=== PATIENT | female | born 1940 | race Caucasian/White ===

== ENCOUNTER → 2016-10-17 | Day surgery (SDC) | payer OTHER ==
[~2016-10-17] MED LIST: ARTIFICIAL TEAR15 M2 OP; ASPIR 8181 MG PO; AZILECT PO; CLEAR EYES OPH; CLONAZEPAM0.5 MG PO; CYMBALTA60 M1 PO; DULOXETINE HYDR60 MG PO; ECOTRIN81 MG PO; ENSURE 237 ML237 ML PO; LEVOTHYROXINE0.05 M1 PO; MIRALAX17 GM PO; RESTASIS1 EACH OPH; STALEVO PO; ZANTAC 150MG150 MG PO
--- NOTE | 2016-10-24 09:11 | Operative Report ---
Operative/Inv Procedure Report Surgery Date: 10/17/16 Name of Procedure: Surgical Extraction teeth 1, 2, 14, 15, 16, 17, 32 Pre-Operative Diagnosis: dental caries Post-Operative Diagnosis: same Estimated Blood Loss: less than 50ml Surgeon/Optical Instrument Assembly Supervisor: KLARISSA QUIJANO DMD, Anesthesia: general endotracheal tube (Nasal-tracheal) Operative/Procedure Note Note: after local anesthesia administered - surigcally extracted teeth 1, 2, 14, 15, 16, 17, and 32 No complications pt tolerated procedure well All surgical sites hemostatic extubated w no complication and transfered to PACU in stable condition Discharge Disposition: PACU
== END ==
LOC: STS 01:33
DX: K02.9 Dental caries, unspecified (principal); G20 Parkinson's disease; E03.9 Hypothyroidism, unspecified; K21.9 Gastro-esophageal reflux disease without esophagitis; Z79.82 Long term (current) use of aspirin
CPT/HCPCS: J0131; J0290; J1200; J2250

== ENCOUNTER 2017-10-02 15:35 | Inpatient (IN) | payer OTHER ==
[~2017-10-02] VITALS: Ht 157.5 cm; Wt 47.2 kg
[~2017-10-02 15:35] MED LIST changes: -AZILECT PO; +AZILECT1 M1 PO; +CLONAZEPAM0.5 M2 PO; -CLONAZEPAM0.5 MG PO; -LEVOTHYROXINE0.05 M1 PO; +LEVOXYL50 MCG PO; +MIRALAX17 G1 PO; -MIRALAX17 GM PO; -ZANTAC 150MG150 MG PO; +ZANTAC150 M1 PO
[2017-10-02] MEDS ORDERED: STALEVO 75 TAB1 EACH PO (15:42)
[2017-10-02] MEDS ORDERED: CLONAZEPAM0.5 M2 PO (15:44)
[2017-10-02] MEDS ORDERED: ARTIFICIAL TEAR15 M8 OPH (15:45)
[2017-10-02] MEDS ORDERED: RESTASIS1 EACH OPH (15:46)
[2017-10-02] MEDS ORDERED: NAPROXEN SODIU220 M1 PO (15:46)
--- NOTE | 2017-10-02 15:57 | ED GENERAL ADULT ---
History of Present Illness General Chief Complaint: General Adult Stated Complaint: BIBA ?DEHYDRATION Source: patient, old records, EMS Exam Limitations: no limitations Vital Signs & Intake/Output Vital Signs & Intake/Output Vital Signs Date Time Temp Pulse Resp B/P B/P Pulse O2 O2 Flow FiO2 Mean Ox Delivery Rate 10/03 1257 97.9 90 18 134/62 96 Room Air Room Air 10/03 0947 97.9 82 18 132/60 99 Room Air 10/03 0739 98.4 82 18 119/58 99 Room Air 10/03 0608 Room Air 10/03 0607 97.7 92 16 127/89 98 Room Air 10/03 0141 Room Air 10/02 2211 98.0 71 18 115/79 99 Room Air 10/02 2041 Room Air 10/02 1830 98.3 76 18 126/88 98 Room Air 10/02 1545 98.0 69 18 130/71 95 Room Air ED Intake and Output 10/03 0000 10/02 1200 Intake Total 0 Output Total 400 Balance -400 Intake, Oral 0 Output, Urine 400 Patient 126 lb Weight Weight Reported by Patient Measurement Method Allergies Coded Allergies: amantadine (STOMACH UPSET 10/02/17) indomethacin (UPSET STOMACH 10/02/17) Uncoded Allergies: dust (UNKNOWN 10/07/14) Reconcile Medications Carbidopa/Levodopa/Entacapone (Stalevo 75 Tablet) 18.75 MG-75 MG-200 MG TABLET 1 TAB PO TID PARKINSONS (Reported) Clonazepam 0.5 MG TABLET 1 TAB PO DAILY ANXIETY (Reported) Clonazepam 0.5 MG TABLET 0.5 TAB PO BID ANXIETY (Reported) Cyclosporine (Restasis) 0.05 % DROPERETTE 1 GTT OPH BID EYE (Reported) Duloxetine HCl (Cymbalta) 60 MG CAPSULE.DR 1 CAP PO DAILY DEPRESSION ( Reported) Levothyroxine Sodium (Levoxyl) 50 MCG TABLET 1 TAB PO DAILY AC THYROID ( Reported) Naproxen Sodium 220 MG CAPSULE 1 TAB PO Q8P PRN PAIN (Reported) Polyethylene Glycol 3350 (Miralax) 17 GRAM POWD.PACK 1 PAC PO DAILY CONSTIPATION (Reported) dissolve in water Polyvinyl Alcohol (Artificial Tears) 1.4 % DROPS 1-2 DROP OPH TIDPRN PRN EYE (Reported) Ranitidine HCl (Zantac) 150 MG TABLET 1 TAB PO QPM GI (Reported) Rasagiline Mesylate (Azilect) 1 MG TABLET 1 TAB PO DAILY PARKINSONS (Reported ) Triage Note: AINSLEY FROM MD OFFICE FOR CONCERN OF DEHYDRATION. PT WITH PARKINSONS DX AND LIVES WITH . REQUIRES [address] HECTOR CONCERNED ABOUT HUSBANDS ABILITY TO CARE FOR PT AT HOME. PER EMS WILL LEAVE PT HOME WHEN VISITING NURSE/PT/OT STAFF COME TO VISIT AND SOMETIMES WILL NOT BE BACK WHEN IT IS TIME FOR VISITING CAREGIVER TO LEAVE. UPON ARRIVAL PT AWAKE, ALERT, ORIENTED. TALKS QUIETLY WITH DIFFICULTY, VERY HARD TO UNDERSTAND PT. DENIES PAIN OR SOB. SKIN COOL AND PALE Triage Nurses Notes Reviewed? yes HPI: Patient sent in for evaluation by elderly protective services. Patient's took her out of her rehabilitation facility stating that he would take care of her. He then canceled visiting nursing. Nursing became concerned because the patient was sitting in the same chair all day and she was not being cared for. Patient was brought to her primary care physician and elderly protective services was contacted. Patient was sent to the emergency department for evaluation and further treatment. Upon questioning patient states that she does not feel safe at home and that her does not care for her. Patient states that she sits all day in a chair and he won't even clean her. (Mindy WASHBURN,Aleks Sol) Past History Travel History Traveled to [place] past 21 day No Medical History Any Pertinent Medical History? see below for history Neurological: Parkinson's disease EENT: cataracts Cardiovascular: CAD Respiratory: NONE Gastrointestinal: constipation Hepatic: NONE Renal: NONE Musculoskeletal: falls Psychiatric: anxiety, depression Endocrine: hypothyroidism Blood Disorders: NONE Cancer(s): NONE ASSOCIATE STORE DIRECTOR/Reproductive: NONE History of MRSA: No History of VRE: No History of CDIFF: No Surgical History Surgical History: non-contributory Psychosocial History Who do you live with Spouse Services at Home None What is your primary language Japanese Tobacco Use: Never used ETOH Use: denies use Illicit Drug Use: denies illicit drug use Family History Hx Contributory? No (Mindy WASHBURN,Aleks Sol) Review of Systems Review of Systems Constitutional: Reports: no symptoms, weakness. EENTM: Reports: no symptoms. Respiratory: Reports: no symptoms. Cardiovascular: Reports: no symptoms. GI: Reports: no symptoms. Genitourinary: Reports: no symptoms. Musculoskeletal: Reports: no symptoms. Skin: Reports: no symptoms. Neurological/Psychological: Reports: no symptoms. Hematologic/Endocrine: Reports: no symptoms. Immunologic/Allergic: Reports: no symptoms. All Other Systems: Reviewed and Negative (Mindy WASHBURN,Aleks Sol) Physical Exam Physical Exam General Appearance: well developed/nourished, alert, awake, anxious, moderate distress Head: atraumatic, normal appearance Eyes: Bilateral: PERRL, EOMI. Ears, Nose, Throat: normal pharynx, DRY MUCOSA Neck: normal inspection, supple, full range of motion Respiratory: normal breath sounds, chest non-tender, no respiratory distress, lungs clear Cardiovascular: regular rate/rhythm, normal peripheral pulses Gastrointestinal: normal bowel sounds, soft, non-tender, no organomegaly Back: normal inspection, normal range of motion Extremities: normal inspection, normal capillary refill, normal range of motion, no edema Neurologic/Psych: no motor/sensory deficits, awake, alert, oriented x 3 Skin: intact, normal color, warm/dry Lymphatic: no anterior cervical charis Core Measures ACS in differential dx? No CVA/TIA Diagnosis: No Sepsis Present: No Sepsis Focused Exam Completed? No (Mindy WASHBURN,Aleks Sol) Progress Differential Diagnoses I considered the following diagnoses in my evaluation of the patient: [ Dehydration, electrolyte abnormality] Plan of Care: Orders Procedure Date/time Status CBC WITHOUT DIFFERENTIAL 10/04 06 Active BASIC ELECTROLYTES PLUS BUN&CR 10/04 0600 Active Regular Diet 10/03 B Active Weight 10/03 1336 Active Vital Signs 10/03 1336 Complete Teach/Educate 10/03 1336 Active Pain Treatment and Response 10/03 1336 Active Nutritional Intake, Monitor 10/03 1336 Active Isolation 10/03 1336 Active Intake & Output 10/03 1336 Complete Patient Care Conference 10/03 1336 Active Activity/Ambulation 10/03 1336 Complete Pathway - chart 10/03 1154 Active House Staff 10/03 1154 Active Patient Data 10/03 1149 Active OXYGEN SETUP (GEN) 10/03 1126 Active Saline Lock 10/03 1126 Active Admit to inpatient 10/03 1126 Active Vital Signs 10/03 1126 Active Activity/Ambulation 10/03 1126 Active Code Status 10/03 1126 Active CASE MANAGEMENT CONSULT 10/03 0929 Active XRY-SHOULDER COMPLETE-LEFT 10/03 UNK Active PT Evaluate & Treat 10/03 UNK Active Therapeutic Activities 10/03 UNK Complete PT EVAL LOW COMPLEX 20 MIN 10/03 UNK Complete VTE Mechanical Prophylaxis 10/03 UNK Active MISTAKE 10/03 UNK Active Precautions 10/03 UNK Active Intake & Output 10/03 UNK Active PT Evaluate & Treat 10/02 1816 Active URINALYSIS 10/02 1551 Complete TROPONIN LEVEL 10/02 1551 Complete COMPREHENSIVE METABOLIC PANEL 10/02 1551 Complete CBC WITHOUT DIFFERENTIAL 10/02 1551 Complete EKG 10/02 1551 Active Current Medications Sig/Tarun Start time Last Medication Dose Stop Time Status Admin Famotidine 20 MG DAILY 10/03 1354 AC (Pepcid) Polyethylene Glycol 17 GM DAILY 10/03 1353 AC (Miralax) Clonazepam 0.5 MG BID 10/03 1000 AC 10/03 (KlonoPIN) 10/10 0959 0943 Duloxetine HCl 60 MG DAILY 10/03 1000 AC 10/03 (Cymbalta) 0943 Levothyroxine Sodium 0.05 MG DAILY AC 10/03 0700 AC 10/03 (Synthroid) 0619 Naproxen 500 MG BID 10/02 2200 AC 10/03 (Naprosyn) 0943 Laboratory Tests 10/02/17 1626: Anion Gap 5, Estimated GFR > 60, BUN/Creatinine Ratio 27.1 H, Glucose 90, Calcium 9.3, Total Bilirubin 0.7, AST 21, ALT 18, Alkaline Phosphatase 68, Troponin I < 0.01, Total Protein 6.8, Albumin 3.8, Globulin 3.0, Albumin/ Globulin Ratio 1.3, CBC w Diff NO MAN DIFF REQ, RBC 4.57, MCV 91.9, MCH 29.7, MCHC 32.3 L, RDW 14.4, MPV 8.9, Gran % 61.7, Lymphocytes % 29.7, Monocytes % 7.1, Eosinophils % 0.9, Basophils % 0.6, Absolute Granulocytes 3.4, Absolute Lymphocytes 1.6, Absolute Monocytes 0.4, Absolute Eosinophils 0.1, Absolute Basophils 0, Urine Color ORANG H, Urine Clarity HAZY H, Urine pH 5.0, Ur Specific [place] >= 1.030, Urine Protein TRACE H, Urine Ketones 15 H, Urine Nitrite POS H, Urine Bilirubin NEG, Urine Urobilinogen 0.2, Ur Leukocyte Esterase NEG, Ur Microscopic SEDIMENT EXAMINED, Urine RBC FEW H, Urine WBC RARE , Ur Epithelial Cells RARE, Urine Bacteria MOD H, Urine Mucus MOD H, Urine Hemoglobin NEG, Urine Glucose 100 H Initial ED EKG: NSR, nonspecific ST T wave chg Prior EKG: unchanged Hand-Off Endorsed To: Valentin Wayne MD Endorsed Time: 1900 Pending: consult (PT, CASE MANAGEMENT) (Mindy WASHBURN,Aleks Sol) Comments: 10/03/2017 7:24:03 AM patient signed out to Dr. COLE at shift guide changer. (Valentin Wayne MD) Departure Departure Disposition: STILL A PATIENT Condition: Stable Clinical Impression Primary Impression: Multifactorial gait disorder Referrals: Geronimo WASHBURN,Isai Gann (PCP/Family) Departure Forms: Customer Survey General Discharge Information (Mindy WASHBURN,Aleks Sol) Departure Time of Disposition: 1123 Admission Note Spoke With: Sharmila Mera MD Documentation of Exam: Documentation of any treatments & extenuating circumstances including Concerns Regarding Discharge (functional status, medication knowledge or non-compliance, living conditions, etc.) that warrant an admission rather than observation: Patient is unable to safely ambulate even with an assist of 2 and perform ADLs with inadequate resources at home to ensure her safety with elderly protective services evaluating the spouse and home situation. She required extensive rehabilitation physical therapy medication adjustment and continuing care discharge planning. (Francois WASHBURN,Carter) Critical Care Note Critical Care Note Critical Care Time: non-applicable (Aleks Guillen MD)
[2017-10-02 16:36] LABS: ABSOLUTE BASOPHIL COUNT 0 /CUMM (0.0-0.2); ABSOLUTE EOSINOPHIL COUNT 0.1 /CUMM (0.0-0.7); ABSOLUTE GRANULOCYTE CT 3.4 /CUMM (1.4-6.5); ABSOLUTE LYMPH COUNT 1.6 /CUMM (1.2-3.4); ABSOLUTE MONOCYTE COUNT 0.4 /CUMM (0.10-0.60); BASOPHIL % 0.6 % (0.0-2.0); EOSINOPHIL % 0.9 % (0-5); GRANULOCYTE % 61.7 % (42.2-75.2); MEAN CORPUSCULAR HGB 29.7 PG (27.0-31.0); MEAN CORPUSCULAR HGB CONC 32.3 G/DL (33.0-37.0); MEAN CORPUSCULAR VOLUME 91.9 FL (81.0-99.0); MEAN PLATELET VOLUME 8.9 FL (7.4-10.4); PLATELET COUNT 317 /CUMM (130-400); RBC DISTRIBUTION WIDTH 14.4 % (11.5-14.5); RED BLOOD CELL CT 4.57 /CUMM (4.20-5.40); WHITE BLOOD CELL COUNT 5.5 /CUMM (4.8-10.8)
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
[2017-10-03] MEDS ORDERED: CARBIDOPA-LEVO1 EAC1 PO (14:15)
--- NOTE | 2017-10-03 14:59 | RADIOLOGY REPORT ---
EXAMINATION: XR SHOULDER, LEFT CLINICAL INFORMATION: Left shoulder pain status post fall COMPARISON: 05/12/2015 TECHNIQUE: Four views of the left shoulder. FINDINGS: No fracture or dislocation. The humeral head articulates appropriately with the glenoid. Mild degenerative changes at the left acromioclavicular joint. The visualized lung is clear. IMPRESSION: No acute fracture or malalignment. Mild degenerative changes of the acromioclavicular joint.
[2017-10-03 16:00] VITALS: BP 106/58
[2017-10-03 21:11] VITALS: BP 110/64
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
[2017-10-04 07:10] VITALS: BP 118/62
[2017-10-04 08:35] LABS: ABSOLUTE BASOPHIL COUNT 0 /CUMM (0.0-0.2); ABSOLUTE EOSINOPHIL COUNT 0.1 /CUMM (0.0-0.7); ABSOLUTE GRANULOCYTE CT 2.2 /CUMM (1.4-6.5); ABSOLUTE LYMPH COUNT 1.4 /CUMM (1.2-3.4); ABSOLUTE MONOCYTE COUNT 0.4 /CUMM (0.10-0.60); BASOPHIL % 0.7 % (0.0-2.0); EOSINOPHIL % 3.2 % (0-5); GRANULOCYTE % 52.9 % (42.2-75.2); MEAN CORPUSCULAR HGB 30.7 PG (27.0-31.0); MEAN CORPUSCULAR HGB CONC 33.5 G/DL (33.0-37.0); MEAN CORPUSCULAR VOLUME 91.9 FL (81.0-99.0); MEAN PLATELET VOLUME 9.9 FL (7.4-10.4); PLATELET COUNT 246 /CUMM (130-400); RBC DISTRIBUTION WIDTH 14.7 % (11.5-14.5); RED BLOOD CELL CT 3.73 /CUMM (4.20-5.40); WHITE BLOOD CELL COUNT 4.1 /CUMM (4.8-10.8)
[2017-10-04 08:57] LABS: HEMATOCRIT 34.3 % (37-47)
--- NOTE | 2017-10-04 10:34 | PN- Att Addend ---
See Addendum Attending Addendum Attending Brief Note Patient was seen and evalauted. Chart reviewed Vital Signs Date Time Temp Pulse Resp B/P B/P Pulse O2 O2 Flow FiO2 Mean Ox Delivery Rate 10/04 0711 98.4 18 96 10/04 0710 81 118/62 10/03 2111 98.5 90 17 110/64 98 Room Air 10/03 1600 97.6 86 18 106/58 97 Room Air 10/03 1257 97.9 90 18 134/62 96 Room Air Room Air Intake & Output 10/04 1600 10/04 0800 10/04 0000 Intake Total 120 60 Output Total 400 250 Balance -280 -190 Intake, Oral 120 60 Number 0 Bowel Movements Output, Urine 400 250 Patient 47.627 kg Weight Weight Bed scale Measurement Method GEN: HEENT: LUNGS: HEART: ABD: A/P: Ms. Branch is a 77 yo lady with PMHx of PD, Depression, Hypothyroidism, multiple falls, dependent on for ADL's and IADLs admitted due to unsafe home environmenta --no evidence of infection --awaiting PT eval
[2017-10-04 14:00] VITALS: BP 116/60
[2017-10-04 22:54] VITALS: BP 124/64
[2017-10-05 07:06] VITALS: BP 127/63
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
[2017-10-05 14:37] VITALS: BP 140/60
[2017-10-05 21:14] VITALS: BP 122/72
[2017-10-06 06:47] VITALS: BP 122/66
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
[2017-10-06 16:12] VITALS: BP 116/62
[2017-10-06 21:55] VITALS: BP 98/62
[2017-10-07 06:45] VITALS: BP 124/68
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
[2017-10-07 13:52] VITALS: BP 120/60
[2017-10-07 14:17] VITALS: BP 120/60
== END 2017-10-07 14:46 | DRG 57 ==
LOC: ERH 15:35 → ERHI 10-03 11:26 → 2NB 10-03 11:26 → ENRESERV 10-03 12:18 → ENTRNSPT 10-03 12:59 → EDTRNSPTSTS 10-03 13:02 → 2NB 10-03 13:06 → CMPTRNSPT 10-03 13:24 → 2NB 10-06 17:35 → ENPENDDIS 10-07 14:06 → 2NB 10-07 14:46
PROVIDERS: Emergency Medicine; Student in an Organized Health Care Education/Training Program
DX: G20 Parkinson's disease (principal); E86.0 Dehydration; T76.01XA Adult neglect or abandonment, suspected, initial encounter; R26.2 Difficulty in walking, not elsewhere classified; Z60.9 Problem related to social environment, unspecified; F32.9 Major depressive disorder, single episode, unspecified; E03.9 Hypothyroidism, unspecified; Z91.81 History of falling; Z88.8 Allergy status to other drugs, medicaments and biological substances; K59.00 Constipation, unspecified; F41.9 Anxiety disorder, unspecified; I25.10 Atherosclerotic heart disease of native coronary artery without angina pectoris; H26.9 Unspecified cataract; Z66 Do not resuscitate; Z99.3 Dependence on wheelchair; Z75.2 Other waiting period for investigation and treatment; R39.11 Hesitancy of micturition
CPT/HCPCS: 2NBSP; 36415; 36592; 73030-LT; 81001; 82436; 87086; 93005; 93010; 97110-GO; 97116-GO; 97161-GP; 97530-GO; J1644

== ENCOUNTER 2017-10-14 00:26 | Emergency (ER) | payer OTHER ==
[~2017-10-14] VITALS: Ht 157.5 cm; Wt 46.3 kg
[~2017-10-14 00:26] MED LIST changes: +ARTIFICIAL TEAR15 M8 OPH; +CARBIDOPA-LEVO1 EAC1 PO; +NAPROXEN SODIU220 M1 PO; +STALEVO 75 TAB1 EACH PO
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
[2017-10-14 01:13] VITALS: BP 177/71
--- NOTE | 2017-10-14 01:22 | CT SCAN REPORT ---
EXAMINATION: NONCONTRAST HEAD CT NONCONTRAST CERVICAL SPINE CT INDICATION INFORMATION: Fall with head injury COMPARISON: 05/12/2015 TECHNIQUE: Separate noncontrast CT examinations of the head and cervical spine were performed. Coronal and sagittal images were created for each examination at the technologist workstation. DLP: 966 mGy-cm FINDINGS: Head: There is no evidence of acute intracranial hemorrhage or territorial infarction. No abnormal mass effect or midline shift is seen. Pepe to white matter differentiation is well preserved. No extra-axial fluid collections are identified. No hydrocephalus. Proportional prominence of the ventricles and sulcal spaces is consistent with mild volume loss. Patchy periventricular and deep white matter hypoattenuation is consistent with mild small vessel ischemic changes. The osseous structures and soft tissues are normal. Aerosolized secretions noted in the left sphenoid. The mastoid air cells and visualized portions of the paranasal sinuses are otherwise well aerated. Cervical spine: There is anatomic alignment of the vertebral bodies and posterior elements. The atlantoaxial and atlantooccipital articulations are intact. Vertebral body heights are maintained. There is multilevel intervertebral disc space narrowing with endplate osteophyte formation and facet arthropathy. Partial fusion of the C5, C6, and C7 vertebral bodies. No evidence of acute fracture. No prevertebral soft tissue swelling. Visualized portions of the lung apices are unremarkable. The thyroid gland is unremarkable. IMPRESSION: 1. No acute intracranial findings. 2. No acute fracture or malalignment of the cervical spine. Moderate multilevel degenerative changes.
--- NOTE | 2017-10-14 01:24 | RADIOLOGY REPORT ---
EXAMINATION: XR THORACOLUMBAR SPINE CLINICAL INFORMATION: Fall with pain COMPARISON: None TECHNIQUE: 2 views of the thoracolumbar spine were obtained. FINDINGS: No acute fracture or subluxation. Scoliotic curvature. There is multilevel endplate osteophyte formation, greatest laterally. Mild disc space narrowing throughout the lumbar spine. The lung bases are clear. The visualized bowel gas pattern is nonobstructive with prominent stool burden. Right upper quadrant surgical clips. IMPRESSION: No acute fracture or malalignment. Scoliosis. Mild to moderate degenerative changes.
--- NOTE | 2017-10-14 01:25 | RADIOLOGY REPORT ---
EXAMINATION: XR WRIST, RIGHT CLINICAL INFORMATION: Fall with pain COMPARISON: None TECHNIQUE: PA, lateral, and oblique views of the right wrist. FINDINGS: No acute fracture or dislocation. The carpal rows are aligned. There are moderate to severe degenerative changes at the triscaphe joint. Moderate degenerative changes of the first carpometacarpal joint. There is joint space narrowing with sclerosis and osteophyte formation. Cyst formation in the distal ulna. The soft tissues are unremarkable. Additional degenerative changes partially visualized at the interphalangeal joints. IMPRESSION: No acute fracture or malalignment. Degenerative changes.
== END 2017-10-14 02:06 ==
LOC: ERH 00:26
DX: S09.90XA Unspecified injury of head, initial encounter (principal); W19.XXXA Unspecified fall, initial encounter; Y92.129 Unspecified place in nursing home as the place of occurrence of the external cause; Y93.9 Activity, unspecified
CPT/HCPCS: 72080; 73110-RT

== ENCOUNTER 2017-12-27 18:27 | Inpatient (IN) | payer OTHER ==
[~2017-12-27] VITALS: Ht 157.5 cm; Wt 48.1 kg
[~2017-12-27 18:27] MED LIST changes: +ACETAMINOPHEN650 M3 PO; -LEVOXYL50 MCG PO; +LEVOXYL75 MCG PO; +OMEPRAZOLE20 M2 PO; +TIZANIDINE HCL2 M2 PO
[2017-12-27 18:58] LABS: ABSOLUTE BASOPHIL COUNT 0 /CUMM (0.0-0.2); ABSOLUTE EOSINOPHIL COUNT 0 /CUMM (0.0-0.7); ABSOLUTE GRANULOCYTE CT 7.9 /CUMM (1.4-6.5); ABSOLUTE LYMPH COUNT 0.5 /CUMM (1.2-3.4); ABSOLUTE MONOCYTE COUNT 1.5 /CUMM (0.10-0.60); BASOPHIL % 0.1 % (0.0-2.0); EOSINOPHIL % 0 % (0-5); GRANULOCYTE % 79.5 % (42.2-75.2); HEMATOCRIT 27.6 % (37-47); MEAN CORPUSCULAR HGB 30.7 PG (27.0-31.0); MEAN CORPUSCULAR HGB CONC 33.1 G/DL (33.0-37.0); MEAN CORPUSCULAR VOLUME 92.7 FL (81.0-99.0); MEAN PLATELET VOLUME 8.6 FL (7.4-10.4); PLATELET COUNT 277 /CUMM (130-400); RBC DISTRIBUTION WIDTH 15.3 % (11.5-14.5); RED BLOOD CELL CT 2.97 /CUMM (4.20-5.40); WHITE BLOOD CELL COUNT 9.9 /CUMM (4.8-10.8)
--- NOTE | 2017-12-27 20:01 | RADIOLOGY REPORT ---
EXAMINATION: XR CHEST CLINICAL INFORMATION: Cough. COMPARISON: Chest 12/22/2017. TECHNIQUE: 2 views of the chest were obtained. FINDINGS: There is interval right lower lobe patchy consolidation with effusion. Rest of lungs are expanded and clear. Heart size and pulmonary vascularity is normal. IMPRESSION: New right lower lobe infiltrate. Suspect pleural effusion.
[2017-12-27] MEDS ORDERED: [UNRECOGNIZED DRUG - OTHER] PO (20:38)
--- NOTE | 2017-12-27 21:10 | ED GENERAL ADULT ---
History of Present Illness General Chief Complaint: General Adult Stated Complaint: PNA Source: patient Exam Limitations: poor historian Vital Signs & Intake/Output Vital Signs & Intake/Output Vital Signs Date Time Temp Pulse Resp B/P B/P Pulse O2 O2 Flow FiO2 Mean Ox Delivery Rate 12/27 2149 99.0 98 20 106/64 94 Room Air 12/27 2017 99.1 98 20 107/58 93 Room Air 12/28 1855 97.8 100 22 95/52 94 Room Air Allergies Coded Allergies: amantadine (STOMACH UPSET 10/02/17) indomethacin (UPSET STOMACH 10/02/17) Uncoded Allergies: dust (UNKNOWN 10/07/14) Reconcile Medications Acetaminophen (Acetaminophen ER) 650 MG TABLET.ER 1 TAB PO TID pain (Reported ) Amantadine HCl (Amantadine) 100 MG TABLET 1 TAB PO DAILY PARKINSONS (Reported ) Clonazepam 0.5 MG TABLET 1.5 TAB PO DAILY ANXIETY (Reported) Cyclosporine (Restasis) 0.05 % DROPERETTE 1 GTT OPH BID EYE (Reported) Levothyroxine Sodium (Levoxyl) 75 MCG TABLET 1 TAB PO DAILY AC THYROID ( Reported) Omeprazole 20 MG CAPSULE.DR 1 CAP PO DAILY GI (Reported) Polyethylene Glycol 3350 (Miralax) 17 GRAM POWD.PACK 1 PAC PO DAILY CONSTIPATION (Reported) dissolve in water [POWER CEREAL] 100 % PO TID POWER CEREAL (Reported) Ranitidine HCl (Zantac) 150 MG TABLET 1 TAB PO DAILY GI (Reported) Tizanidine HCl 2 MG CAPSULE 0.5 TAB PO TID MUSCLE RELAXER (Reported) Triage Note: PER EMS AND [facility]-10 PT BEING RX FOR PNA SPIKED TEMP TODAY TO 102 AND WAS HYPOTENSIVE WITH LOW SATS PT HAD REC'D 3 DOSES OF CEFUROXIME AT [facility]. Triage Nurses Notes Reviewed? yes Onset: Gradual Duration: day(s): Timing: constant HPI: 77-year-old female with a history of Parkinson's, hypothyroid, anxiety, depression and by ambulance from her [facility] where she was found hypoxic to the 70s and hypotensive with an SPEP to the 90s. Patient received approximately 250 mL of normal saline in route with EMS with improvement in her BP to the low 100s. On arrival to the ED her O2 sats are in the mid 90s on room air without any prior interventions. Patient is currently being treated for pneumonia with IV cefepime since yesterday. She has since received 3 doses. Patient has been noted to be febrile to 102 Fahrenheit and also with a nonproductive cough. Denies chest pain, shortness of breath, abdominal pain, nausea, vomiting, diarrhea. (Jessy Lemus) Past History Travel History Traveled to [place] past 21 day No Medical History Any Pertinent Medical History? see below for history Neurological: Parkinson's disease EENT: cataracts Cardiovascular: CAD Respiratory: NONE Gastrointestinal: constipation Hepatic: NONE Renal: NONE Musculoskeletal: falls Psychiatric: anxiety, depression Endocrine: hypothyroidism Blood Disorders: NONE Cancer(s): NONE ORTHOPEDIC TECHNICIAN/Reproductive: NONE History of MRSA: No History of VRE: No History of CDIFF: No Surgical History Surgical History: BACK SURGERY TONSILECTOMY Psychosocial History Who do you live with Spouse Services at Home Nursing What is your primary language Georgian Tobacco Use: Never used Family History Family History, If Any: FATHER FH: myocardial infarction BROTHER FH: myocardial infarction Hx Contributory? No (Jessy Lemus) Review of Systems Review of Systems Constitutional: Reports: no symptoms. EENTM: Reports: no symptoms. Respiratory: Reports: see HPI. Cardiovascular: Reports: no symptoms. GI: Reports: no symptoms. Genitourinary: Reports: no symptoms. Musculoskeletal: Reports: no symptoms. Skin: Reports: no symptoms. Neurological/Psychological: Reports: no symptoms. Hematologic/Endocrine: Reports: no symptoms. Immunologic/Allergic: Reports: no symptoms. (Jessy Lemus) Physical Exam Physical Exam General Appearance: well developed/nourished, no apparent distress, alert, awake , comfortable Head: atraumatic, normal appearance Eyes: Bilateral: normal appearance. Neck: normal inspection Respiratory: normal breath sounds, lungs clear Cardiovascular: regular rate/rhythm Gastrointestinal: soft, non-tender Back: normal inspection Extremities: normal inspection Neurologic/Psych: awake, alert, normal mood/affect Skin: intact, normal color, warm/dry Core Measures ACS in differential dx? No CVA/TIA Diagnosis: No Sepsis Present: Yes Sepsis Focused Exam Completed? Yes (Jessy Lemus) Progress Differential Diagnoses I considered the following diagnoses in my evaluation of the patient: [Pneumonia versus UTI versus sepsis versus dehydration] Plan of Care: Orders Procedure Date/time Status Heart Healthy Diet 12/28 B Active Weight 12/27 2156 Active Vital Signs 12/27 2156 Active Teach/Educate 12/27 2156 Active Pain Treatment and Response 12/27 2156 Active Nutritional Intake, Monitor 12/27 2156 Active Isolation 12/27 2156 Active Intake & Output 12/27 2156 Active Patient Care Conference 12/27 2156 Active Activity/Ambulation 12/27 2156 Active STREP PNEUMO URINARY ANTIGEN 12/27 2114 Active LEGIONELLA URINARY ANTIGEN 12/27 2114 Active LOWER RESPIRATORY CULTURE 12/27 2113 Active Patient Data 12/27 2040 Active ED Holding Orders 12/27 2034 Active Admit to inpatient 12/27 2034 Active Vital Signs 12/27 2034 Active Code Status 12/27 2034 Active Intake & Output 12/28 1951 Active CULTURE,URINE 12/27 1832 Active BLOOD CULTURE 12/27 1832 Active URINALYSIS 12/27 183 Complete TROPONIN LEVEL 12/27 183 Complete LACTIC ACID 12/27 183 Complete CBC WITHOUT DIFFERENTIAL 12/28 1831 Complete BASIC METABOLIC PANEL 12/28 1831 Complete EKG 12/28 1831 Active Laboratory Tests 12/27/17 2132: Lactic Acid Cancelled 12/27/17 1950: Urinalysis LIGHT H, Urine Color YEL, Urine Clarity CLEAR, Urine pH 6.0, Ur Specific [place] 1.025, Urine Protein 100 H, Urine Ketones TRACE H, Urine Nitrite NEG, Urine Bilirubin NEG, Urine Urobilinogen 0.2, Ur Leukocyte Esterase NEG, Ur Microscopic SEDIMENT EXAMINED, Urine RBC 1-3, Urine WBC 1-3 H, Ur Epithelial Cells RARE, Granular Casts FEW H, Urine Hemoglobin SMALL H, Urine Glucose NEG 12/27/17 1856: Anion Gap 5, Estimated GFR 54 L, BUN/Creatinine Ratio 23.0, Glucose 112 H, Lactic Acid 1.6, Calcium 7.8 L, Troponin I 0.03, CBC w Diff NO MAN DIFF REQ, RBC 2.97 L, MCV 92.7, MCH 30.7, MCHC 33.1, RDW 15.3 H, MPV 8.6, Gran % 79.5 H , Lymphocytes % 5.3 L, Monocytes % 15.1 H, Eosinophils % 0, Basophils % 0.1, Absolute Granulocytes 7.9 H, Absolute Lymphocytes 0.5 L, Absolute Monocytes 1.5 H, Absolute Eosinophils 0, Absolute Basophils 0 Microbiology 06/23 2114 LOWER RESP: Respiratory Culture - ORD 12/27 2113 LOWER RESP: Gram Stain - ORD 12/27 1949 URINE ROUT: Legionella Antigen - RECD 12/27 1949 URINE ROUT: Streptococcus pneumoniae Antigen (M - RECD 12/27 1949 URINE ROUT: Urine Culture - RECD 12/28 1919 BLOOD: Blood Culture - RECD 12/27 1906 BLOOD: Blood Culture - RECD Chest x-ray shows a right lower lobe pneumonia. Patient covered for HCAP with vanc, ceftaz, azithromycin. Will admit for suspected sepsis secondary to pneumonia. Discussed with hospitalist and will admit to [facility]. Discussed with EDMD. Initial ED EKG: NSR, no ST T wave changes (Jessy Lemus) Departure Departure Disposition: STILL A PATIENT Condition: Stable Clinical Impression Primary Impression: Pneumonia Secondary Impressions: Sepsis Referrals: Isai Melton MD (PCP/Family) Departure Forms: Customer Survey General Discharge Information Admission Note Spoke With: Zheng Raymond MD Documentation of Exam: Documentation of any treatments & extenuating circumstances including Concerns Regarding Discharge (functional status, medication knowledge or non-compliance, living conditions, etc.) that warrant an admission rather than observation: (Jessy Lemus) Admission Note Spoke With: Zheng Raymond MD Documentation of Exam: Documentation of any treatments & extenuating circumstances including Concerns Regarding Discharge (functional status, medication knowledge or non-compliance, living conditions, etc.) that warrant an admission rather than observation: [ Patient to be admitted for right lower lobe infiltrate. Patient was hypoxic and hypotensive upon arrival. Her blood pressure has normalized. Patient has been on IV antibiotics and yet she is worsening. Patient will need broad-spectrum antibiotics, ID consultation, pulmonary consultation] PA/OUTSOLE CEMENTER Co-Sign Statement Statement: ED Attending supervision documentation- [X] I saw and evaluated the patient. I have also reviewed all the pertinent lab results and diagnostic results. I agree with the findings and the plan of care as documented in the PA's/OUTSOLE CEMENTER's documentation. [X] I have reviewed the ED Record and agree with the PA's/OUTSOLE CEMENTER's documentation. [] Additions or exceptions (if any) to the PAs/OUTSOLE CEMENTER's note and plan are summarized below: [See above note] (Mindy WASHBURN,Aleks Sol) Critical Care Note Critical Care Note Critical Care Time: 30-74 min (Amina GUIDRY,Jessy) Critical Care Time: 30-74 min (Jessy Lemus)
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
[2017-12-27 22:37] VITALS: BP 120/60
--- NOTE | 2017-12-28 03:17 | Admission Certification ---
Admission Certification Certification Statement - As attending physician, I certify that at the time of - admission, based on clinical presentation, severity of - symptoms, need for further diagnostic testing and - therapeutic interventions, and risk of adverse outcomes - without in-hospital treatment, in my clinical assessment, - this patient requires an acute hospital stay for a minimum - of two nights or longer. I have also considered psychsocial - factors such as support system, advanced age, financial - issues, cognitive issues, and failed out-patient treatments, - past re-admission history, safety of patient, and lack of - compliance as applicable. Specific rationale supporting this admission is: Aspiration pneumonia
[2017-12-28 05:46] VITALS: BP 104/58
--- NOTE | 2017-12-28 09:09 | PN- Housestaff ---
Alberto WASHBURN,Marce 12/28/17 0908: Subjective Follow-up For: Aspiration pneumonia H/o Parkinsons disease Subjective: seen at bedside, remains alert but not oriented. She did have cough with minimal phelgm production. Denies any issues. Review of Systems Constitutional: Reports: see HPI. Objective Last 24 Hrs of Vital Signs/I&O Vital Signs Date Time Temp Pulse Resp B/P B/P Pulse O2 O2 Flow FiO2 Mean Ox Delivery Rate 12/28 0556 92 Nasal 1.5L Cannula 12/28 0546 99.6 100 24 104/58 93 Nasal 1.5L Cannula 12/27 2236 99.0 96 20 120/60 98 12/27 2206 Room Air 12/27 2150 99.0 98 20 106/64 94 Room Air 12/27 2017 99.1 98 20 107/58 93 Room Air 12/27 1856 97.8 100 22 95/52 94 Room Air Intake & Output 12/28 1600 12/28 0800 12/28 0000 Intake Total 900 1000 Output Total 300 Balance 900 700 Intake, IV 650 1000 Intake, Oral 250 Output, Urine 300 Patient 48.534 kg Weight Weight Bed scale Measurement Method Physical Exam General Appearance: Alert, Cooperative, Mild Distress Skin: No Rashes Skin Temp/Moisture Exam: Warm/Dry HEENT: Atraumatic, PERRLA Neck: Supple, No JVD Cardiovascular: Regular Rate, Normal S1, Normal S2 Lungs: Normal Air Movement, crackles at right base, minimally decreased breath sounds. Abdomen: Normal Bowel Sounds, Soft, No Tenderness Neurological: rigidity on extension Extremities: No Clubbing, No Cyanosis, No Edema Vascular: Normal Pulses Current Medications: Current Medications Sig/Tarun Start time Last Medication Dose Route Stop Time Status Admin Acetaminophen 650 MG Q8P PRN 12/27 2330 AC PO Ampicillin Sodium/ 1,500 MG Q6 12/27 2359 AC 12/28 Sulbactam Sodium IV 0552 Sodium Chloride 100 ML Azithromycin 500 MG ONCE ONE 12/27 1899 DC 12/27 Sodium Chloride 250 ML IV 12/27 Carbidopa/Levodopa 1 TAB 0800,1200,1600,2000 12/28 1200 AC PO Carbidopa/Levodopa 1 TAB Q6H 12/28 0100 DC 12/28 PO 0552 Ceftazidime 0 .STK-MED ONE 12/28 1927 DC .ROUTE Ceftazidime 0 .STK-MED ONE 12/28 1923 DC .ROUTE Ceftazidime 2,000 MG ONCE ONE 12/27 1899 DC 12/27 IV 12/27 Clonazepam 0.5 MG 0600 12/29 0600 AC PO 01/05 0559 Clonazepam 0.5 MG 1200,12/28 1200 AC PO 01/04 1159 Cyclosporine 1 GTT BID 12/28 09 AC OPH Enoxaparin Sodium 40 MG DAILY 12/28 09 AC 12/28 SC 1028 Entacapone 200 MG 0800,1200,1600,12/28 1200 AC PO Famotidine 150 MG DAILY 12/28 09 CAN PO Famotidine 20 MG DAILY 12/28 09 AC 12/28 PO 1027 Levothyroxine Sodium 0.075 MG DAILY AC 12/28 0700 AC 12/28 PO 0552 Melatonin 3 MG AT BEDTIME 12/27 2345 AC 12/27 PO 2341 Sodium Chloride 1,000 ML Q13H 12/27 2315 AC 12/27 IV 2342 Sodium Chloride 1,000 ML BOLUS ONE 12/27 1899 DC 12/27 IV 12/27 Tizanidine HCl 1 MG TID 12/27 2359 AC 12/28 PO 1027 Vancomycin HCl 0 .STK-MED ONE 12/28 1923 DC .ROUTE Vancomycin HCl 1,000 MG ONCE ONE 12/27 1899 MT 12/27 Sodium Chloride 250 ML IV 12/27 Last 24 Hrs of Lab/Eliceo Results Last 24 Hrs of Labs/Mics: Laboratory Tests 12/28/17 0655: Anion Gap 9, Estimated GFR > 60, BUN/Creatinine Ratio 22.2, Lactic Acid 2.7 H, TSH Pending, Free T4 Pending, CBC w Diff NO MAN DIFF REQ, RBC 2.72 L, MCV 93.3, MCH 31.3 H, MCHC 33.5, RDW 15.0 H, MPV 9.2, Gran % 80.0 H, Lymphocytes % 7.4 L, Monocytes % 12.4 H, Eosinophils % 0.1, Basophils % 0.1, Absolute Granulocytes 7.6 H, Absolute Lymphocytes 0.7 L, Absolute Monocytes 1.2 H, Absolute Eosinophils 0, Absolute Basophils 0 12/27/172339: Lactic Acid 1.8 12/27/172131: Lactic Acid Cancelled 12/27/171949: Urinalysis LIGHT H, Urine Color YEL, Urine Clarity CLEAR, Urine pH 6.0, Ur Specific [place] 1.025, Urine Protein 100 H, Urine Ketones TRACE H, Urine Nitrite NEG, Urine Bilirubin NEG, Urine Urobilinogen 0.2, Ur Leukocyte Esterase NEG, Ur Microscopic SEDIMENT EXAMINED, Urine RBC 1-3, Urine WBC 1-3 H, Ur Epithelial Cells RARE, Granular Casts FEW H, Urine Hemoglobin SMALL H, Urine Glucose NEG 12/27/17 1856: Anion Gap 5, Estimated GFR 54 L, BUN/Creatinine Ratio 23.0, Glucose 112 H, Lactic Acid 1.6, Calcium 7.8 L, Troponin I 0.03, CBC w Diff NO MAN DIFF REQ, RBC 2.97 L, MCV 92.7, MCH 30.7, MCHC 33.1, RDW 15.3 H, MPV 8.6, Gran % 79.5 H , Lymphocytes % 5.3 L, Monocytes % 15.1 H, Eosinophils % 0, Basophils % 0.1, Absolute Granulocytes 7.9 H, Absolute Lymphocytes 0.5 L, Absolute Monocytes 1.5 H, Absolute Eosinophils 0, Absolute Basophils 0 Microbiology 12/27 2113 LOWER RESP: Respiratory Culture - COLB 12/27 2113 LOWER RESP: Gram Stain - COLB 12/27 1949 URINE ROUT: Legionella Antigen - COMP 12/27 1949 URINE ROUT: Streptococcus pneumoniae Antigen (M - COMP 12/27 1949 URINE ROUT: Urine Culture - RES 12/28 1919 BLOOD: Blood Culture - RECD 12/27 1906 BLOOD: Blood Culture - RECD Assessment/Plan Assessment: 77-year-old female with PMH significant for Parkinsons, hypothyoidism, depression presented in ER from detention for temperature of 102, respiration rate of 38, desaturating to 77% on 2 L, low blood pressure less responsive and less vocal. Patient states that she was having cough since last 1 week. According to nurse patient had pneumonia on chest x-ray and she was initially started on Augmentin for one dose then changed to cefepime yesterday. She received total 3 doses of cefepime. Currently patient looks comfortable, no significant fever spike, blood pressure stable. She has right base crackles. Mild left shift. She has dysphasia and supposed to be on pured and nectar thick diet. Clinical picture consisted with aspiration pneumonia given the location and comorbidities and the fact that she did not improve with cefepime. + Suspected aspiration pneumonia + History of Parkinson's, hypothyroidism, depression Aspiration pneumonia Given parkinsons disease, dysphagia being the risk factors for aspiration. Imaging findings consistent with right lower lobe infiltrate, fevers, confusion. She is already on nectar thick and pureed diet which we will continue. Gentle IV hydration. Patient appears tachypenic still, we will trend lactate, repeat CXR today. We will continue IV unasyn to cover oral ranjan/gram negative and positives. Try to obtain sputum culture. Mucinex to loosen up the phlegm. TRC/ Nebs H/O parkinsons Patient had significant tremors and rigidity on extension. * Continue [id number]-[id number]-[id number] [phone] at 8am, 12pm, 4pm, 8pm. * continue tizanidine for muscle relaxation hypothyroidism Check TSH, free T4 Continue levothroxine pening above anxiety Cotinue clonazepam DVT prophylaxis SC lovenox Code status DNR/DNI according to documentation, confirmed with patient Problem List: 1. Pneumonia 2. Altered mental status 3. Parkinsons disease Pain Ratin Pain Location: n/a Pain Goal: Pain 4 or less Pain Plan: tylenol prn Tomorrow's Labs & Rationales: none Adarsh WASHBURN,Hermelinda 12/28/17 1300: Attending MD Review Statement Attending Statement Attending MD Statement: examined this patient, discuss w/resident/PA/DIRECTOR ATHLETIC, agreed w/resident/PA/DIRECTOR ATHLETIC, reviewed EMR data (avail), discussed with nursing, discussed with case mgmt, reviewed images, amended to note Attending Assessment/Plan: Patient seen and examined, she is looking somewhat short of breath. She is also requiring oxygen. Patient is admitted with possible aspiration pneumonia. Vital Signs Date Time Temp Pulse Resp B/P B/P Pulse O2 O2 Flow FiO2 Mean Ox Delivery Rate 12/28 1219 98.4 98 20 122/70 96 Nasal 1.5L Cannula 12/28 0800 92 Nasal 1.5L Cannula 12/28 0556 92 Nasal 1.5L Cannula 12/28 0546 99.6 100 24 104/58 93 Nasal 1.5L Cannula 12/27 2237 99.0 96 20 120/60 98 12/27 2206 Room Air 12/27 2150 99.0 98 20 106/64 94 Room Air 12/27 2017 99.1 98 20 107/58 93 Room Air 12/27 1856 97.8 100 22 95/52 94 Room Air on exam; awake, nad. cv; s1,s2, rrr resp; + junkky bs. abd; soft, nt, bs+ ext; no edema Laboratory Tests 12/28 12/28 12/27 1225 0655 2340 Chemistry Sodium (137 - 145 mmol/L) 143 Potassium (3.5 - 5.1 mmol/L) 4.0 Chloride (98 - 107 mmol/L) 110 H Carbon Dioxide (22 - 30 mmol/L) 24 Anion Gap (5 - 16) 9 BUN (7 - 17 mg/dL) 20 H Creatinine (0.5 - 1.0 mg/dL) 0.9 Estimated GFR (>60 ml/min) > 60 BUN/Creatinine Ratio (7 - 25 %) 22.2 Lactic Acid (0.7 - 2.1 mmol/L) 0.7 2.7 H 1.8 Phosphorus (2.5 - 4.5 mg/dL) 2.6 Magnesium (1.6 - 2.3 mg/dL) 2.5 H Troponin I (< 0.11 ng/ml) 0.03 [id number]-Mwcuvkwwkhf Pept (<125 pg/mL) 2390 H TSH (0.270 - 4.200 uIU/mL) 1.090 Free T4 (0.78 - 2.44 ng/dL) 1.81 Hematology CBC w Diff NO MAN DIFF REQ WBC (4.8 - 10.8 /CUMM) 9.4 RBC (4.20 - 5.40 /CUMM) 2.72 L Hgb (12.0 - 16.0 G/DL) 8.5 L Hct (37 - 47 %) 25.4 L MCV (81.0 - 99.0 FL) 93.3 MCH (27.0 - 31.0 PG) 31.3 H MCHC (33.0 - 37.0 G/DL) 33.5 RDW (11.5 - 14.5 %) 15.0 H Plt Count (130 - 400 /CUMM) 275 MPV (7.4 - 10.4 FL) 9.2 Gran % (42.2 - 75.2 %) 80.0 H Lymphocytes % (20.5 - 51.1 %) 7.4 L Monocytes % (1.7 - 9.3 %) 12.4 H Eosinophils % (0 - 5 %) 0.1 Basophils % (0.0 - 2.0 %) 0.1 Absolute Granulocytes (1.4 - 6.5 /CUMM) 7.6 H Absolute Lymphocytes (1.2 - 3.4 /CUMM) 0.7 L Absolute Monocytes (0.10 - 0.60 /CUMM) 1.2 H Absolute Eosinophils (0.0 - 0.7 /CUMM) 0 Absolute Basophils (0.0 - 0.2 /CUMM) 0 12/27 Chemistry Lactic Acid Cancelled Urines Urinalysis LIGHT H Urine Color (YEL,AMB,STR) YEL Urine Clarity (CLEAR) CLEAR Urine pH (5.0 - 8.0) 6.0 Ur Specific [place] (1.001 - 1.035) 1.025 Urine Protein (NEG,<30 MG/DL) 100 H Urine Ketones (NEG) TRACE H Urine Nitrite (NEG) NEG Urine Bilirubin (NEG) NEG Urine Urobilinogen (0.1 - 1.0 EU/dl) 0.2 Ur Leukocyte Esterase (NEG) NEG Ur Microscopic SEDIMENT EXAMINED Urine RBC (0 - 5 /HPF) 1-3 Urine WBC (0 - 2 /HPF) 1-3 H Ur Epithelial Cells (NONE,FEW) RARE Granular Casts (NONE /LPF) FEW H Urine Hemoglobin (NEG) SMALL H Urine Glucose (N MG/DL) NEG 12/27 1856 Chemistry Sodium (137 - 145 mmol/L) 140 Potassium (3.5 - 5.1 mmol/L) 4.3 Chloride (98 - 107 mmol/L) 106 Carbon Dioxide (22 - 30 mmol/L) 28 Anion Gap (5 - 16) 5 BUN (7 - 17 mg/dL) 23 H Creatinine (0.5 - 1.0 mg/dL) 1.0 Estimated GFR (>60 ml/min) 54 L BUN/Creatinine Ratio (7 - 25 %) 23.0 Glucose (65 - 99 mg/dL) 112 H Lactic Acid (0.7 - 2.1 mmol/L) 1.6 Calcium (8.4 - 10.2 mg/dL) 7.8 L Troponin I (< 0.11 ng/ml) 0.03 Hematology CBC w Diff NO MAN DIFF REQ WBC (4.8 - 10.8 /CUMM) 9.9 RBC (4.20 - 5.40 /CUMM) 2.97 L Hgb (12.0 - 16.0 G/DL) 9.1 L Hct (37 - 47 %) 27.6 L MCV (81.0 - 99.0 FL) 92.7 MCH (27.0 - 31.0 PG) 30.7 MCHC (33.0 - 37.0 G/DL) 33.1 RDW (11.5 - 14.5 %) 15.3 H Plt Count (130 - 400 /CUMM) 277 MPV (7.4 - 10.4 FL) 8.6 Gran % (42.2 - 75.2 %) 79.5 H Lymphocytes % (20.5 - 51.1 %) 5.3 L Monocytes % (1.7 - 9.3 %) 15.1 H Eosinophils % (0 - 5 %) 0 Basophils % (0.0 - 2.0 %) 0.1 Absolute Granulocytes (1.4 - 6.5 /CUMM) 7.9 H Absolute Lymphocytes (1.2 - 3.4 /CUMM) 0.5 L Absolute Monocytes (0.10 - 0.60 /CUMM) 1.5 H Absolute Eosinophils (0.0 - 0.7 /CUMM) 0 Absolute Basophils (0.0 - 0.2 /CUMM) 0 A/P; 77 y/o M with pmh sig for Parkinson's disease, depression, hypothyroidism, multiple falls in the past, non-ambulatory, GERD admitted with possible aspiration pneumonia. Patient is getting a CTA for this hypoxia and tachypnea. After the study fluids should be stopped. If patient becomes more hypoxic and CT and negative then consider giving small dose of IV Lasix. Pending CT results further management will need to be decided. Continue antibiotics and follow-up on the cultures. Patient will need swallow evaluation. Continue anti-Parkinson's meds. Please add TRC nebs. Please DC Lovenox and start the patient on heparin subcutaneous.
[2017-12-28 09:45] LABS: ABSOLUTE BASOPHIL COUNT 0 /CUMM (0.0-0.2); ABSOLUTE EOSINOPHIL COUNT 0 /CUMM (0.0-0.7); ABSOLUTE GRANULOCYTE CT 7.6 /CUMM (1.4-6.5); ABSOLUTE LYMPH COUNT 0.7 /CUMM (1.2-3.4); ABSOLUTE MONOCYTE COUNT 1.2 /CUMM (0.10-0.60); BASOPHIL % 0.1 % (0.0-2.0); EOSINOPHIL % 0.1 % (0-5); HEMATOCRIT 25.4 % (37-47); MEAN CORPUSCULAR HGB 31.3 PG (27.0-31.0); MEAN CORPUSCULAR HGB CONC 33.5 G/DL (33.0-37.0); MEAN CORPUSCULAR VOLUME 93.3 FL (81.0-99.0); MEAN PLATELET VOLUME 9.2 FL (7.4-10.4); PLATELET COUNT 275 /CUMM (130-400); RED BLOOD CELL CT 2.72 /CUMM (4.20-5.40); WHITE BLOOD CELL COUNT 9.4 /CUMM (4.8-10.8)
--- NOTE | 2017-12-28 10:43 | RADIOLOGY REPORT ---
EXAMINATION: XR PORTABLE CHEST CLINICAL INFORMATION: Cough with skin flap reduction. Rule out progression of effusion. COMPARISON: 12/27/2017 TECHNIQUE: Portable frontal view of the chest was obtained. FINDINGS: Airspace consolidation in the right lower lobe is increased as compared to prior. There is a small associated right pleural effusion. Additional retrocardiac airspace opacification is present at the cardiophrenic angle and may correspond to an additional area of airspace disease. This is improved from prior. Trace significant left-sided effusion. Cardiac silhouette is unchanged from prior. There is mild pulmonary venous congestion. No kevin interstitial edema. Mild osteoarthritis is present in the AC joints and humeral joints. There is degenerative disc disease in the thoracic spine. IMPRESSION: 1. Increased airspace consolidation in the right lower lobe with a small associated right-sided pleural effusion. 2. Slight improvement in the retrocardiac airspace disease in the medial aspect of the left lower lobe. Trace left pleural effusion. 3. Pulmonary venous congestion
[2017-12-28 12:19] VITALS: BP 122/70
--- NOTE | 2017-12-28 14:21 | CT SCAN REPORT ---
EXAMINATION: CT ANGIOGRAM CHEST CLINICAL INFORMATION: Cough, tachycardia, desaturation venous congestion. COMPARISON: None TECHNIQUE: Multiple axial images were obtained through the chest after the administration of 50 mL of Optiray 320 intravenous contrast. Images were reviewed on a dedicated 3-D workstation. DLP: 216 mGy-cm FINDINGS: Is good opacification of pulmonary artery without any intraluminal filling defect or narrowing. The thoracic aorta is of normal caliber without aneurysm or dissection. The central trachea and the bronchi widely patent. No abnormal size mediastinal lymph nodes seen. The thyroid lobes are symmetrical. There are patchy opacities in the right upper lobe and superior segment both lower lobes consistent with infiltrates. In addition there is right lower lobe and left lower lobe posterior basal consolidation with air bronchogram. Patchy infiltrate also involves the right middle lobe. No large mass or nodule is seen. There are bilateral small pleural effusions. No pericardial effusion seen. The heart size is borderline enlarged. Imaging through the upper abdomen reveals prominent dilated likely intrahepatic ducts. However the liver is partially visualized. Spleen and bilateral adrenal glands unremarkable. IMPRESSION: Bilateral lower lobe consolidation with air bronchograms and underlying bilateral small effusions. Patchy infiltrates are seen in both upper lobes and right middle lobe. There is no evidence of PE. No evidence of aneurysm or dissection.
[2017-12-28 14:34] VITALS: BP 122/68
[2017-12-28 21:56] VITALS: BP 134/62
[2017-12-29 06:13] VITALS: BP 120/74
--- NOTE | 2017-12-29 07:21 | ECHOCARDIOGRAM REPORT ---
DANAE DASILVA Age: 77 : 1940 Gender: F Exam Date: 12/28/2017 13:54 Exam Location: [address] [place] [address] Ht (in): 62 Wt (lb): 105 BSA: 1.44 BP: 104 / 58 Ordering Physician: Burton Winston MD Referring Physician: Burton Winston MD Technologist: Adilene Hall RDCS Room Number: 232 Indications: SHORTNESS OF BREATH Rhythm: Sinus Technical Quality: Fair FINDINGS Left Ventricle Normal size left ventricle. No obvious regional wall motion abnormalities. Normal left ventricular ejection fraction estimated at 60-65%. Right Ventricle Right ventricle at upper limits of normal. Normal right ventricular size and function. Right Atrium Normal right atrial size. Left Atrium Mild left atrial dilatation. Mitral Valve Mitral valve thickened. Mild mitral annular calcification. Mild mitral regurgitation. Aortic Valve Trileaflet aortic valve. Diffuse thickening (sclerosis) of the aortic valve cusps without reduced excursion. Tricuspid Valve Structurally normal tricuspid valve. Uaas-wf-[id number] tricuspid regurgitation. Right ventricular systolic pressure estimated at 32 mmHg. Pulmonic Valve Pulmonic valve not well visualized, grossly normal. Pericardium No pericardial effusion. Great Vessels Aortic root and proximal ascending aorta not well visualized, grossly normal. CONCLUSIONS 1. Moderate aortic sclerosis is present with no significant valvular stenosis. Mild aortic insufficiency is present. The peak gradient across the aortic valve is 20 mmHg. 2. Mild thickening of the mitral leaflets is present with minimal to mild annular calcification and mild mitral insufficiency with mild left atrial enlargement. 3. No significant pericardial fluid is detected 4. The left ventricular chamber size and systolic function are normal with no resting wall motion abnormalities. 5. Mild to moderate tricuspid insufficiency is present with no significant pulmonary hypertension. 6. Mobile chordal structures are noted in the mid left ventricular cavity. 7. 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 (Electronically Signed) Final Date: 29 December 2017 07:21 MEASUREMENTS (Male / Female) Normal Values 2D ECHO LV Diastolic Diameter PLAX 4.0 cm 4.2 - 5.9 / 3.9 - 5.3 cm LV Systolic Diameter PLAX 2.3 cm 2.1 - 4.0 cm LV Fractional Shortening PLAX 42.5 % 25 - 46 % LV Ejection Fraction 2D Teich 74.1 % IVS Diastolic Thickness 1.0 cm LVPW Diastolic Thickness 1.0 cm LV Relative Wall Thickness 0.5 RV Internal Dim ED PLAX 2.1 cm 1.9 - 3.8 cm LVOT Diameter 1.9 cm Aortic Root Diameter 3.0 cm LA Systolic Diameter LX 2.4 cm 3.0 - 4.0 / 2.7 - 3.8 cm LA Volume 39.0 cm 18 - 58 / 22 - 52 cm DOPPLER AV Peak Velocity 226.0 cm/s AV Peak Gradient 20.4 mmHg AV Mean Velocity 144.0 cm/s AV Mean Gradient 10.0 mmHg AV Velocity Time Integral 43.8 cm LVOT Peak Velocity 182.0 cm/s LVOT Peak Gradient 13.2 mmHg LVOT Mean Velocity 119.0 cm/s LVOT Mean Gradient 7.0 mmHg LVOT Velocity Time Integral 34.3 cm LVOT Stroke Volume 97.3 cm AV Area Cont Eq vti 2.2 cm AV Area Cont Eq pk 2.3 cm MV Peak Velocity 117.0 cm/s MV Peak Gradient 5.5 mmHg MV Mean Velocity 78.0 cm/s MV Mean Gradient 3.0 mmHg Mitral E Point Velocity 85.9 cm/s Mitral A Point Velocity 90.3 cm/s Mitral E to A Ratio 1.0 MV PHT Velocity 109.0 cm/s MV Deceleration Crisp 420.0 cm/s MV Pressure Half Time 77.9 ms MV Area PHT 2.8 cm MV Deceleration Time 224.0 ms TR Peak Velocity 296.0 cm/s TR Peak Gradient 35.0 mmHg Right Atrial Pressure 5.0 mmHg Pulmonary Artery Systolic Pressu 40.0 mmHg Right Ventricular Systolic Press 40.0 mmHg PV Peak Velocity 78.6 cm/s PV Peak Gradient 2.5 mmHg PV Mean Velocity 57.7 cm/s PV Mean Gradient 1.0 mmHg PV Velocity Time Integral 19.3 cm LV E' Lateral Velocity 11.5 cm/s Mitral E to LV E' Lateral Ratio 7.5 LV E' Septal Velocity 10.2 cm/s Mitral E to LV E' Septal Ratio 8.4
--- NOTE | 2017-12-29 07:42 | PN- Housestaff ---
Subjective Follow-up For: Sepsis 2/2 Pneumonia Subjective: Patient continues to cough. Specch hard to understand but denies any pain anywhere or shortness of breath. Review of Systems Constitutional: Reports: no symptoms. Objective Last 24 Hrs of Vital Signs/I&O Vital Signs Date Time Temp Pulse Resp B/P B/P Pulse O2 O2 Flow FiO2 Mean Ox Delivery Rate 12/29 1220 100.2 12/29 1211 94 Nasal 1.0L Cannula 12/29 0800 93 Nasal 1.0L Cannula 12/29 0613 98.2 90 20 120/74 92 Room Air 12/29 0000 Nasal 1.5L Cannula 12/28 2216 96 12/28 2156 99.6 103 20 134/62 93 12/28 1600 Nasal 1.5L Cannula 12/28 1434 99.5 96 18 122/68 95 Nasal 1.5L Cannula 12/28 1421 Nasal 1.5L Cannula Intake & Output 12/29 1600 12/29 0800 12/29 0000 Intake Total 200 600 Output Total Balance 200 600 Intake, IV 200 Intake, Oral 600 Patient 106 lb Weight Physical Exam General Appearance: Alert, Oriented X3, Cooperative Skin: No Rashes, No Breakdown Cardiovascular: Regular Rate, Normal S1, Normal S2 Lungs: Poor respiratory effort Abdomen: Normal Bowel Sounds, Soft, No Tenderness Extremities: No Clubbing, No Cyanosis, No Edema Current Medications: Current Medications Sig/Tarun Start time Last Medication Dose Route Stop Time Status Admin Acetaminophen 650 MG ONCE ONE 12/29 1215 DC 12/29 IN 12/29 1216 1220 Acetaminophen 650 MG Q8P PRN 12/27 2330 AC PO Ampicillin Sodium/ 1,500 MG Q6 12/27 2359 12/29 Sulbactam Sodium IV 1210 Sodium Chloride 100 ML Carbidopa/Levodopa 1 TAB 0800,1200,1600,12/28 1200 AC 12/29 PO 1235 Clonazepam 0.5 MG 00 12/29 06 AC 12/29 PO 01/05 0559 0523 Clonazepam 0.5 MG 1200,12/28 1200 AC 12/29 PO 01/04 1159 1136 Cyclosporine 1 GTT BID 12/28 09 AC 12/29 OPH 0744 Enoxaparin Sodium 40 MG DAILY 12/28 0900 DC 12/28 SC 1028 Entacapone 200 MG 0800,1200,1600,12/28 1200 AC 12/29 PO 1234 Famotidine 20 MG DAILY 12/28 0900 AC 12/29 PO 0744 Furosemide 40 MG .STK-MED ONE 12/28 1514 DC IV 12/28 1515 Furosemide 20 MG ONCE ONE 12/28 1445 DC 12/28 IV 12/28 1446 1534 Guaifenesin 600 MG Q12 12/28 1037 AC 12/29 PO 0744 Heparin Sodium 5,000 UNIT Q8 12/28 1400 AC 12/29 (Porcine) SC 0524 Levothyroxine Sodium 0.075 MG DAILY AC 12/28 0700 AC 12/29 PO 0524 Melatonin 3 MG AT BEDTIME 12/27 2345 AC 12/28 PO 1949 Patient Medication 1 ED ONE ONE 12/29 0915 DC Teaching ED 12/29 0916 Sodium Chloride 1,000 ML Q13H 12/27 2315 NH 12/27 IV 2342 Tizanidine HCl 1 MG TID 12/27 2359 12/29 PO 0745 Assessment/Plan Assessment: 77-year-old female with PMH significant for Parkinsons, hypothyoidism, depression presented in ER from shelter for temperature of 102, respiration rate of 38, desaturating to 77% on 2 L, low blood pressure less responsive and less vocal. Patient states that she was having cough since last 1 week. According to nurse patient had pneumonia on chest x-ray and she was initially started on Augmentin for one dose then changed to cefepime yesterday. She received total 3 doses of cefepime. Currently patient looks comfortable, no significant fever spike, blood pressure stable. She has right base crackles. Mild left shift. She has dysphasia and supposed to be on pured and nectar thick diet. Clinical picture consisted with aspiration pneumonia given the location and comorbidities and the fact that she did not improve with cefepime. + Suspected aspiration pneumonia + History of Parkinson's, hypothyroidism, depression Aspiration pneumonia Given parkinsons disease, dysphagia being the risk factors for aspiration. Patient presents with fevers and confusion and Imaging findings consistent with bialteral lower lobe and upper lobe infiltrates. CTA was done yesterday given hypoxia and tachypnea but negative for any PE. * Continue IV unasyn to cover oral ranjan/gram negative and positives. * Urine Legionella and strep antigen pending. * Try to obtain sputum culture. * Tylenol as needed for Fever. * Continue Mucinex * TRC/Nebs * Continue supplemental oxygen and taper down as needed * Echocardiogram shows normal EF with no regional WM abnormalities. * Recieved IV lasix 20mg x 1 yesterday. * Failed swallow eval today, will make her NPO except meds. Repeat swallow eval tomorrow. * Will repeat BEP today to r/o out any contrast induced injury. H/O parkinsons Patient had significant tremors and rigidity on extension. * Continue Nldqxfaoq-ncfvzsly-[phone] at 8am, 12pm, 4pm, 8pm. * continue tizanidine for muscle relaxation hypothyroidism * TSH, free T4 WNL * Continue levothroxine anxiety * Cotinue clonazepam DVT prophylaxis; SC lovenox Patient is DNR/DNI Problem List: 1. Sepsis 2. Pneumonia Pain Ratin Pain Location: None Pain Goal: Remain pain free Pain Plan: None Tomorrow's Labs & Rationales: CBC(Sepsis)
--- NOTE | 2017-12-29 10:50 | PN- Att Addend ---
Attending Addendum Attending Brief Note Patient seen and examined, she is very slow to talk. Patient says that her breathing is improved. CTA chest yesterday was negative for any PE but it does show bilateral consolidations. Patchy infiltrates are seen in both upper lobes and right middle lobe. Vital Signs Date Time Temp Pulse Resp B/P B/P Pulse O2 O2 Flow FiO2 Mean Ox Delivery Rate 12/29 0800 93 Nasal 1.0L Cannula 12/29 0613 98.2 90 20 120/74 92 Room Air 12/29 0000 Nasal 1.5L Cannula 12/28 2216 96 12/28 2156 99.6 103 20 134/62 93 12/28 1600 Nasal 1.5L Cannula 12/28 1434 99.5 96 18 122/68 95 Nasal 1.5L Cannula 12/28 1421 Nasal 1.5L Cannula 12/28 1219 98.4 98 20 122/70 96 Nasal 1.5L Cannula on exam; awake, nad. cv; s1,s2, rrr resp; + junky bs b/l abd; soft, nt, bs+ ext: no edema Laboratory Tests 12/28 1225 Chemistry Lactic Acid (0.7 - 2.1 mmol/L) 0.7 A/P; 77 y/o M with pmh sig for Parkinson's disease, depression, hypothyroidism, multiple falls in the past, non-ambulatory, GERD admitted with possible aspiration pneumonia. CTA chest yesterday was negative for any PE but it does show bilateral consolidations. Patchy infiltrates are seen in both upper lobes and right middle lobe. Patient did receive 1 dose of IV Lasix for possible fluid overload. Echocardiogram is negative for any evidence of congestive heart failure. Please check BEP. We'll continue current antibiotics. Patient to get swallow evaluation. Continue other current meds. Please add TRC and abscess. DVT prophylaxis: Heparin subcutaneous.
[2017-12-29 14:24] VITALS: BP 100/60
[2017-12-29 22:25] VITALS: BP 122/60
[2017-12-30 06:33] VITALS: BP 130/60
--- NOTE | 2017-12-30 07:24 | PN- Housestaff ---
Subjective Follow-up For: Aspiration Pneumonia Subjective: Patient lying in bed, off the supplemental oxygen. Denies any difficulty breathing. Continues to have a cough. No fever/chills overnight. Review of Systems Constitutional: Reports: no symptoms. Objective Last 24 Hrs of Vital Signs/I&O Vital Signs Date Time Temp Pulse Resp B/P B/P Pulse O2 O2 Flow FiO2 Mean Ox Delivery Rate 12/30 1415 97.2 83 20 125/63 93 Room Air 12/30 0945 92 Room Air 12/30 0800 Room Air 12/30 0633 97.4 78 20 130/60 91 Room Air 12/29 2225 98.0 89 20 122/60 91 Nasal Cannula 12/29 1623 96 Nasal 1.0L Cannula Intake & Output 12/30 1600 12/30 0812/30 0000 Intake Total 500 400 Output Total Balance 500 400 Intake, IV 500 400 Intake, Oral 0 Number 0 0 Bowel Movements Physical Exam General Appearance: Alert, Cooperative, No Acute Distress Skin: No Rashes, No Breakdown Cardiovascular: Regular Rate, Normal S1, Normal S2 Lungs: Clear to Auscultation, Poor respiratory effort Abdomen: Normal Bowel Sounds, Soft, No Tenderness Extremities: No Clubbing, No Cyanosis, No Edema Current Medications: Current Medications Sig/Tarun Start time Last Medication Dose Route Stop Time Status Admin Acetaminophen 650 MG .STK-MED ONE 12/30 0619 DC PO 12/30 06 Acetaminophen 650 MG Q8P PRN 12/27 2330 AC 12/30 PO 0620 Ampicillin Sodium/ 1,500 MG Q6 12/27 2359 12/30 Sulbactam Sodium IV 1231 Sodium Chloride 100 ML Carbidopa/Levodopa 1 TAB 0800,1200,1600,12/28 1200 AC 12/30 PO 1231 Clonazepam 0.5 MG 0830 12/30 0830 AC 12/30 PO 01/06 0829 0857 Clonazepam 0.5 MG 1200,12/28 1200 AC 12/30 PO 01/04 1159 1231 Cyclosporine 1 GTT BID 12/28 09 AC 12/30 OPH 0902 Dextrose/Sodium 1,000 ML Q20H 12/29 1445 DC 12/29 Chloride IV 12/30 1044 1451 Entacapone 200 MG 0800,1200,1600,12/28 1200 AC 12/30 PO 1231 Famotidine 20 MG DAILY 12/28 0900 AC 12/30 PO 0856 Guaifenesin 600 MG Q12 12/28 1037 AC 12/30 PO 0858 Heparin Sodium 5,000 UNIT Q8 12/28 1400 AC 12/30 (Porcine) SC 1420 Levothyroxine Sodium 0.075 MG DAILY AC 12/28 0700 AC 12/30 PO 0616 Melatonin 3 MG AT BEDTIME 12/27 2345 AC 12/29 PO 2051 Tizanidine HCl 1 MG TID 12/27 2359 AC 12/30 PO 1417 Last 24 Hrs of Lab/Eliceo Results Last 24 Hrs of Labs/Mics: Laboratory Tests 12/30/17 0710: CBC w Diff NO MAN DIFF REQ, RBC 2.82 L, MCV 92.8, MCH 30.8, MCHC 33.2, RDW 15.3 H, MPV 8.9, Gran % 75.8 H, Lymphocytes % 15.3 L, Monocytes % 6.5, Eosinophils % 2.0, Basophils % 0.4, Absolute Granulocytes 4.6, Absolute Lymphocytes 0.9 L, Absolute Monocytes 0.4, Absolute Eosinophils 0.1, Absolute Basophils 0 Assessment/Plan Assessment: 77-year-old female with PMH significant for Parkinsons, hypothyoidism, depression presented in ER from correction for temperature of 102, respiration rate of 38, desaturating to 77% on 2 L, low blood pressure less responsive and less vocal. Patient states that she was having cough since last 1 week. According to nurse patient had pneumonia on chest x-ray and she was initially started on Augmentin for one dose then changed to cefepime yesterday. She received total 3 doses of cefepime. Currently patient looks comfortable, no significant fever spike, blood pressure stable. She has right base crackles. Mild left shift. She has dysphasia and supposed to be on pured and nectar thick diet. Clinical picture consisted with aspiration pneumonia given the location and comorbidities and the fact that she did not improve with cefepime. + Suspected aspiration pneumonia + History of Parkinson's, hypothyroidism, depression Aspiration pneumonia Given parkinsons disease, dysphagia being the risk factors for aspiration. Patient presents with fevers and confusion and Imaging findings consistent with bialteral lower lobe and upper lobe infiltrates. CTA was done yesterday given hypoxia and tachypnea but negative for any PE. * Continue IV unasyn to cover oral ranjan/gram negative and positives. * Urine Legionella and strep antigen pending. * Try to obtain sputum culture. * Tylenol as needed for Fever. * Continue Mucinex * TRC/Nebs * Discontinue supplemental oxygen. * Echocardiogram shows normal EF with no regional WM abnormalities. * NPO after failed swallow eval yesterday. Repeat swallow eval today. H/O parkinsons * Continue Bbowupgnl-bjlnuvkt-[id number] [id number] at 8am, 12pm, 4pm, 8pm. * continue tizanidine for muscle relaxation hypothyroidism * TSH, free T4 WNL * Continue levothroxine anxiety * Cotinue clonazepam DVT prophylaxis; SC lovenox Patient is DNR/DNI Problem List: 1. Parkinsons disease 2. Pneumonia Pain Ratin Pain Location: NA Pain Goal: Remain pain free Pain Plan: Pain pathway Tomorrow's Labs & Rationales: None
[2017-12-30 08:10] LABS: ABSOLUTE BASOPHIL COUNT 0 /CUMM (0.0-0.2); ABSOLUTE EOSINOPHIL COUNT 0.1 /CUMM (0.0-0.7); ABSOLUTE GRANULOCYTE CT 4.6 /CUMM (1.4-6.5); ABSOLUTE LYMPH COUNT 0.9 /CUMM (1.2-3.4); ABSOLUTE MONOCYTE COUNT 0.4 /CUMM (0.10-0.60); BASOPHIL % 0.4 % (0.0-2.0); GRANULOCYTE % 75.8 % (42.2-75.2); HEMATOCRIT 26.1 % (37-47); MEAN CORPUSCULAR HGB 30.8 PG (27.0-31.0); MEAN CORPUSCULAR HGB CONC 33.2 G/DL (33.0-37.0); MEAN CORPUSCULAR VOLUME 92.8 FL (81.0-99.0); MEAN PLATELET VOLUME 8.9 FL (7.4-10.4); PLATELET COUNT 352 /CUMM (130-400); RBC DISTRIBUTION WIDTH 15.3 % (11.5-14.5); RED BLOOD CELL CT 2.82 /CUMM (4.20-5.40)
--- NOTE | 2017-12-30 12:34 | PN- Att Addend ---
Attending Addendum Attending Brief Note Patient seen and examined, she currently denies any complaints. She still coughing. She failed swallow evaluation again. Vital Signs Date Time Temp Pulse Resp B/P B/P Pulse O2 O2 Flow FiO2 Mean Ox Delivery Rate 12/30 0945 92 Room Air 12/30 0633 97.4 78 20 130/60 91 Room Air 12/29 2225 98.0 89 20 122/60 91 Nasal Cannula 12/29 1623 96 Nasal 1.0L Cannula 12/29 1424 98.2 67 20 100/60 95 12/29 1418 Nasal 1.0L Cannula on exam; awake, coughing. cv; s1,s2, rrr resp; junky bs overall. abd; soft, nt, bs+ ext; no edema Laboratory Tests 12/30 0710 Hematology CBC w Diff NO MAN DIFF REQ WBC (4.8 - 10.8 /CUMM) 6.0 RBC (4.20 - 5.40 /CUMM) 2.82 L Hgb (12.0 - 16.0 G/DL) 8.7 L Hct (37 - 47 %) 26.1 L MCV (81.0 - 99.0 FL) 92.8 MCH (27.0 - 31.0 PG) 30.8 MCHC (33.0 - 37.0 G/DL) 33.2 RDW (11.5 - 14.5 %) 15.3 H Plt Count (130 - 400 /CUMM) 352 MPV (7.4 - 10.4 FL) 8.9 Gran % (42.2 - 75.2 %) 75.8 H Lymphocytes % (20.5 - 51.1 %) 15.3 L Monocytes % (1.7 - 9.3 %) 6.5 Eosinophils % (0 - 5 %) 2.0 Basophils % (0.0 - 2.0 %) 0.4 Absolute Granulocytes (1.4 - 6.5 /CUMM) 4.6 Absolute Lymphocytes (1.2 - 3.4 /CUMM) 0.9 L Absolute Monocytes (0.10 - 0.60 /CUMM) 0.4 Absolute Eosinophils (0.0 - 0.7 /CUMM) 0.1 Absolute Basophils (0.0 - 0.2 /CUMM) 0 A/P; 77 y/o M with pmh sig for Parkinson's disease, depression, hypothyroidism, multiple falls in the past, non-ambulatory, GERD admitted with aspiration pneumonia. Patient currently on Unasyn. Failed swallow evaluation again. Okay to give meds by mouth as per speech therapy. We will repeat swallow evaluation tomorrow. Continue gentle IV hydration. So far cultures remain negative. Continue the rest of the medications. Patient heparin subcutaneous for DVT prophylaxis. Out of bed to chair. Please order PT eval. D/W at bedside.
[2017-12-30 14:15] VITALS: BP 125/63
[2017-12-30] MEDS ORDERED: KLONOPIN0.5 M1 PO ×2 (14:33)
[2017-12-30] MEDS ORDERED: CARBIDOPA-LEVO1 EA13 PO (14:36)
[2017-12-30] MEDS ORDERED: AUGMENTIN 875-1 EACH PO (14:40)
--- NOTE | 2017-12-30 14:41 | Patient Discharge Instructions ---
Discharge Instructions General Discharge Information You were seen/treated for: Aspiration Pneumonia Special Instructions: Please follow up with your PCP within a week after discharge. Diet Continue normal diet: Yes Additional DIET Information: Puree and Davis thick Diet Activity Full Activity/No Limits: Yes Activity Self Limited: Yes Acute Coronary Syndrome Inclusion Criteria At DC or during hospital stay patient has or had the following: ACS DIAGNOSIS No Discharge Core Measures Meds if any: Prescribed or Continued at Discharge Meds if any: NOT Prescribed or Continued at Discharge Congestive Heart Failure Inclusion Criteria At DC or during hospital stay patient has or had the following: CHF DIAGNOSIS No Discharge Core Measures Meds if any: Prescribed or Continued at Discharge Meds if any: NOT Prescribed or Continued at Discharge Cerebrovascular accident Inclusion Criteria At DC or during hospital stay patient has or had the following: CVA/TIA Diagnosis No Discharge Core Measures Meds if any: Prescribed or Continued at Discharge Meds if any: NOT Prescribed or Continued at Discharge Venous thromboembolism Inclusion Criteria VTE Diagnosis No VTE Type NONE VTE Confirmed by (Test) CT CHEST ANGIOGRAM Discharge Core Measures - Per Current guidelines, there needs to be overlap - treatment for the first 5 days of Warfarin therapy. - If discharged on Warfarin prior to 5 days of - overlap therapy, the patient will need to be - assessed for post discharge needs including - *Post discharge parental anticoagulation - *Warfarin and/or parental anticoagulation education - *Follow up date to check INR post discharge At least 5 days overlap therapy as Inpatient No Meds if any: Prescribed or Continued at Discharge Note: Overlap Therapy is Warfarin and Anticoagulant Meds if any: NOT Prescribed or Continued at Discharge
[2017-12-30 22:37] VITALS: BP 138/70
[2017-12-31 06:20] VITALS: BP 128/70
--- NOTE | 2017-12-31 07:15 | PN- Housestaff ---
George WASHBURN,[facility] 12/31/17 0715: Subjective Follow-up For: Aspiration Pneumonia Subjective: Patient states she feels better, deneis any difficulty breathing or pain anywhere but appears confused and oriented x 1 only. Continues to have a cough. Discussed with at bedside, says she does have confusion on and off at baseline because of her Parkinson's Hx. Review of Systems Constitutional: Reports: no symptoms. Respiratory: Reports: cough. Objective Last 24 Hrs of Vital Signs/I&O Vital Signs Date Time Temp Pulse Resp B/P B/P Pulse O2 O2 Flow FiO2 Mean Ox Delivery Rate 12/31 0620 98.2 78 16 128/70 92 Room Air 12/30 2354 Room Air 12/30 2237 97.5 85 20 138/70 93 12/30 1820 92 Room Air 12/30 1415 97.2 83 20 125/63 93 Room Air 12/30 0945 92 Room Air Intake & Output 12/31 1600 12/31 0800 12/31 0000 Intake Total 400 400 Output Total Balance 400 400 Intake, IV 400 400 Physical Exam General Appearance: Alert, Cooperative, No Acute Distress Skin: No Rashes, No Breakdown Cardiovascular: Regular Rate, Normal S1, Normal S2 Lungs: Normal Air Movement, Poor respiratory effort Abdomen: Normal Bowel Sounds, Soft, No Tenderness Extremities: No Clubbing, No Cyanosis, No Edema Current Medications: Current Medications Sig/Tarun Start time Last Medication Dose Route Stop Time Status Admin Acetaminophen 650 MG Q8P PRN 12/27 2330 AC 12/30 PO 0620 Albuterol Sulfate 3 ML TID 12/30 2100 12/30 INH 1820 Ampicillin Sodium/ 1,500 MG Q6 12/27 2359 12/31 Sulbactam Sodium IV 0520 Sodium Chloride 100 ML Carbidopa/Levodopa 1 TAB 0800,1200,1600,12/28 1200 AC 12/30 PO 2100 Clonazepam 0.5 MG 0830 12/30 0830 12/30 PO 01/06 0829 0857 Clonazepam 0.5 MG 1200,12/28 1200 AC 12/30 PO 01/04 1159 2100 Cyclosporine 1 GTT BID 12/28 0900 12/30 OPH 2105 Dextrose/Sodium 1,000 ML Q20H 12/30 1500 AC 12/30 Chloride IV 12/31 1059 1534 Dextrose/Sodium 1,000 ML Q20H 12/29 1445 DC 12/29 Chloride IV 12/30 1044 1451 Entacapone 200 MG 0800,1200,1600,2000 12/28 1200 AC 12/30 PO 2100 Famotidine 20 MG DAILY 12/28 0900 AC 12/30 PO 0856 Guaifenesin 600 MG Q12 12/28 1037 AC 12/30 PO 2100 Heparin Sodium 5,000 UNIT Q8 12/28 1400 AC 12/31 (Porcine) SC 0521 Levothyroxine Sodium 0.075 MG DAILY AC 12/28 0700 AC 12/31 PO 0521 Melatonin 3 MG AT BEDTIME 12/27 2345 AC 12/30 PO 2100 Patient Medication 1 ED ONE ONE 12/30 1530 DC 12/30 Teaching ED 12/30 1531 1538 Tizanidine HCl 1 MG TID 12/27 2359 AC 12/30 PO 2100 Assessment/Plan Assessment: 77-year-old female with PMH significant for Parkinsons, hypothyoidism, depression presented in ER from halfway for temperature of 102, respiration rate of 38, desaturating to 77% on 2 L, low blood pressure less responsive and less vocal. Patient states that she was having cough since last 1 week. According to nurse patient had pneumonia on chest x-ray and she was initially started on Augmentin for one dose then changed to cefepime yesterday. She received total 3 doses of cefepime. Currently patient looks comfortable, no significant fever spike, blood pressure stable. She has right base crackles. Mild left shift. She has dysphasia and supposed to be on pured and nectar thick diet. Clinical picture consisted with aspiration pneumonia given the location and comorbidities and the fact that she did not improve with cefepime. + Suspected aspiration pneumonia + History of Parkinson's, hypothyroidism, depression Aspiration pneumonia Given parkinsons disease, dysphagia being the risk factors for aspiration. Patient presents with fevers and confusion and Imaging findings consistent with bialteral lower lobe and upper lobe infiltrates. CTA was done yesterday given hypoxia and tachypnea but negative for any PE. * Continue IV unasyn to cover oral ranjan/gram negative and positives. * Urine Legionella and strep antigen negative. * Tylenol as needed for Fever. * Continue Mucinex * TRC/Nebs * Echocardiogram shows normal EF with no regional WM abnormalities. * Continues to be NPO after failed swallow eval twice. Repeat swallow eval today. Might night H/O parkinsons * Continue Nizudziyt-zviqqiml-orlamzigld [phone] at 8am, 12pm, 4pm, 8pm. * continue tizanidine for muscle relaxation hypothyroidism * TSH, free T4 WNL * Continue levothroxine anxiety * Cotinue clonazepam DVT prophylaxis; SC lovenox Patient is DNR/DNI Problem List: 1. Pneumonia Pain Ratin Pain Location: NA Pain Goal: Remain pain free Pain Plan: Pain Pathway Tomorrow's Labs & Rationales: None Hermelinda Altamirano MD 12/31/17 1200: Attending MD Review Statement Attending Statement Attending MD Statement: examined this patient, discuss w/resident/PA/WEB MASTER, agreed w/resident/PA/WEB MASTER, discussed with family, reviewed EMR data (avail), discussed with nursing, discussed with case mgmt, reviewed images, amended to note Attending Assessment/Plan: Patient seen and examined, last night she was confused. This morning she said that she is feeling overall better and denies any complaints as such. Patient had failed swallow evaluation twice. After speaking with her we found out that she has periods of confusion at times even at her baseline in the halfway. Vital Signs Date Time Temp Pulse Resp B/P B/P Pulse O2 O2 Flow FiO2 Mean Ox Delivery Rate 12/31 0846 93 Room Air 12/31 0620 98.2 78 16 128/70 92 Room Air 12/30 2354 Room Air 12/30 2237 97.5 85 20 138/70 93 12/30 1820 92 Room Air 12/30 1415 97.2 83 20 125/63 93 Room Air on exam; awake,nad. slightly confused cv; s1,s2, rrr resp; junky bs overall. abd; soft, nt, bs+ ext; no edema no labs today. A/P; 77 y/o M with pmh sig for Parkinson's disease, depression, hypothyroidism, multiple falls in the past, non-ambulatory, GERD admitted with aspiration pneumonia. Patient to get repeat swallow evaluation today. If she passes and was started on recommended diet. If she fails then all the conservative and discussed the further plan of care. Continue antibiotics. Continue getting gentle IV hydration. Continue the rest of the medications and patient on heparin subcutaneous for DVT prophylaxis. Will try to reorient further confusion. Discuss with her at bedside.
[2017-12-31 14:39] VITALS: BP 130/72
[2017-12-31 22:10] VITALS: BP 130/60
[2018-01-01 06:46] VITALS: BP 154/72
--- NOTE | 2018-01-01 08:19 | PN- Housestaff ---
George WASHBURN,[facility] 01/01/18 0818: Subjective Follow-up For: Aspiration pneumonia Subjective: Patient seems drowsy and lethargic. Eyes look red. Patient unable to provide much history. Review of Systems Constitutional: Reports: no symptoms. Objective Last 24 Hrs of Vital Signs/I&O Vital Signs Date Time Temp Pulse Resp B/P B/P Pulse O2 O2 Flow FiO2 Mean Ox Delivery Rate 01/01 0824 93 Room Air Room Air 01/01 0646 98.6 83 20 154/72 93 Room Air 12/31 2210 98.4 89 20 130/60 93 Room Air 12/31 2137 92 Room Air Room Air 12/31 1439 97.5 91 20 130/72 92 Room Air Intake & Output 01/01 1600 01/01 0800 01/01 0000 Intake Total 0 Output Total Balance 0 Intake, Oral 0 Number 0 0 Bowel Movements Physical Exam General Appearance: Cooperative, No Acute Distress Skin: No Rashes, No Breakdown Cardiovascular: Regular Rate, Normal S1, Normal S2 Lungs: Poor respiratory effort Abdomen: Normal Bowel Sounds, Soft, No Tenderness Extremities: No Clubbing, No Cyanosis, No Edema Current Medications: Current Medications Sig/Atrun Start time Last Medication Dose Route Stop Time Status Admin Acetaminophen 650 MG Q8P PRN 12/27 2330 AC 12/30 PO 0620 Albuterol Sulfate 3 ML TID 12/30 2100 AC 01/01 INH 0824 Ampicillin Sodium/ 1,500 MG Q6 12/27 2359 DC 12/31 Sulbactam Sodium IV 1656 Sodium Chloride 100 ML Carbidopa/Levodopa 1 TAB 0800,1200,1600,2000 12/28 1200 AC 01/01 PO 0850 Clonazepam 0.5 MG 12/30 0830 AC 01/01 PO 01/06 0829 0850 Clonazepam 0.5 MG 1200,12/28 1200 AC 12/31 PO 01/04 1159 2056 Cyclosporine 1 GTT BID 12/28 0900 AC 01/01 OPH 0850 Dextrose/Sodium 1,000 ML Q20H 01/01 0930 AC 01/01 Chloride IV 01/02 0529 0948 Dextrose/Sodium 1,000 ML Q20H 12/30 1500 DC 12/30 Chloride IV 12/31 1059 1534 Docusate Sodium 100 MG DAILY 01/01 0900 AC 01/01 PO 0904 Entacapone 200 MG 0800,1200,1600,2000 12/28 1200 AC 01/01 PO 0850 Famotidine 20 MG DAILY 12/28 0900 AC 01/01 PO 0850 Guaifenesin 600 MG Q12 12/28 1037 AC 01/01 PO 0850 Heparin Sodium 5,000 UNIT Q8 12/28 1400 AC 01/01 (Porcine) SC 0648 Levothyroxine Sodium 0.075 MG DAILY AC 12/28 0700 AC 01/01 PO 0647 Melatonin 3 MG AT BEDTIME 12/27 2345 AC 12/31 PO 2055 Polyethylene Glycol 17 GM DAILY PRN 01/01 0830 AC PO Senna 187 MG AT BEDTIME PRN 01/01 0830 AC PO Tetrahydrozoline HCl 1 GTT Q4-6 PRN PRN 01/01 1015 AC OPH Tizanidine HCl 1 MG TID 12/27 2359 AC 01/01 PO 0850 Assessment/Plan Assessment: 77-year-old female with PMH significant for Parkinsons, hypothyoidism, depression presented in ER from detention for temperature of 102, respiration rate of 38, desaturating to 77% on 2 L, low blood pressure less responsive and less vocal. Patient states that she was having cough since last 1 week. According to nurse patient had pneumonia on chest x-ray and she was initially started on Augmentin for one dose then changed to cefepime yesterday. She received total 3 doses of cefepime. Currently patient looks comfortable, no significant fever spike, blood pressure stable. She has right base crackles. Mild left shift. She has dysphasia and supposed to be on pured and nectar thick diet. Clinical picture consisted with aspiration pneumonia given the location and comorbidities and the fact that she did not improve with cefepime. + Suspected aspiration pneumonia + History of Parkinson's, hypothyroidism, depression Aspiration pneumonia Given parkinsons disease, dysphagia being the risk factors for aspiration. Patient presents with fevers and confusion and Imaging findings consistent with bialteral lower lobe and upper lobe infiltrates. CTA was done yesterday given hypoxia and tachypnea but negative for any PE. * Continue IV unasyn to cover oral ranjan/gram negative and positives. * Urine Legionella and strep antigen negative. * Tylenol as needed for Fever. * Continue Mucinex * TRC/Nebs * Echocardiogram shows normal EF with no regional WM abnormalities. * Continues to be NPO after multiple failed swallow eval attempts. Will proceed with modified barium swallow today, if abnormal will discuss with conservative regarding further goals. H/O parkinsons * Continue Eusytlscq-wcaypylj-khlkxgfpyx [phone] at 8am, 12pm, 4pm, 8pm. * continue tizanidine for muscle relaxation hypothyroidism * TSH, free T4 WNL * Continue levothroxine anxiety * Cotinue clonazepam DVT prophylaxis; SC lovenox Patient is DNR/DNI Problem List: 1. Pneumonia Pain Ratin Pain Location: NA Pain Goal: Remain pain free Pain Plan: Pain pathway Tomorrow's Labs & Rationales: None Adarsh WASHBURN,Hermelinda 01/01/18 1311: Attending MD Review Statement Attending Statement Attending MD Statement: examined this patient, discuss w/resident/PA/PLANT PRODUCTION MANAGER, agreed w/resident/PA/PLANT PRODUCTION MANAGER, discussed with family, reviewed EMR data (avail), discussed with nursing, discussed with case mgmt, reviewed images, amended to note Attending Assessment/Plan: Patient seen and examined, slow to respond. Denies any complaints. Says her breathing is better. Her eyes look erythematous. Patient continues to fail swallow evaluation and even if she did swallow her swallowing was very very slow as per speech therapist and she will not meet her nutritional needs unfortunately. Vital Signs Date Time Temp Pulse Resp B/P B/P Pulse O2 O2 Flow FiO2 Mean Ox Delivery Rate 01/01 0824 93 Room Air Room Air 01/01 0800 Room Air 01/01 0646 98.6 83 20 154/72 93 Room Air 12/31 2210 98.4 89 20 130/60 93 Room Air 12/31 2137 92 Room Air Room Air 12/31 1439 97.5 91 20 130/72 92 Room Air on exam; awake, nad. heent; + conjunctival erythema. cv; s1,s2, rrr resp; clear abd; soft, nt, bs+ ext; no edema no labs. A/P; 77 y/o M with pmh sig for Parkinson's disease, depression, hypothyroidism, multiple falls in the past, non-ambulatory, GERD admitted with aspiration pneumonia. Patient on modified barium swallow which shows There was an episode of aspiration of the thin barium contrast. A lupus continue to recommend that patient is high risk for aspiration and with her very slow swallowing she would not meet nutritional needs. I called patient's conservator and discussed at length. She would like to discuss the patient's family before coming up with any decisions. Currently patient is still nothing by mouth and will remain nothing by mouth until further decisions. Continue antibiotics and all current management as well as IV fluids. We'll add eyedrops for allergic conjunctivitis.
--- NOTE | 2018-01-01 12:56 | RADIOLOGY REPORT ---
EXAMINATION: XR MODIFIED BARIUM SWALLOW CLINICAL INFORMATION: History of Parkinson's. Swallowing difficulty. Presumptive diagnosis of aspiration pneumonia. COMPARISON: None TECHNIQUE: Fluoroscopic assistance was provided during a modified barium swallow performed in cooperation with the speech pathology service. FLUOROSCOPY TIME: 1 minute, 29 seconds NUMBER OF SAVED IMAGES: No spot fluoroscopy images were acquired. Instead, only screen captured images were saved into the electronic picture archive. FINDINGS: The modified barium swallow examination was performed in cooperation with the speech pathologist using dynamic fluoroscopic imaging in a lateral projection. The patient's swallowing function was observed during administration of apple sauce puree, honey, nectar and thin barium contrast. After placement of substances within the oral cavity, the patient repeatedly exhibited a delayed initiation of swallowing. No tracheal aspiration or penetration observed during intake of applesauce puree, honey or nectar. However, aspiration of thin barium contrast was observed. IMPRESSION: There was an episode of aspiration of the thin barium contrast. Please refer to the speech pathology assessment.
[2018-01-01 14:59] VITALS: BP 132/70
[2018-01-01 22:15] VITALS: BP 154/60
[2018-01-02 06:22] VITALS: BP 140/64
--- NOTE | 2018-01-02 07:29 | PN- Housestaff ---
George WASHBURN,[facility] 01/02/18 0729: Subjective Follow-up For: Aspiration pneumonia Subjective: Patient is drowsy but arousable, thinks she is at [place] but oriented to person. Continues to have a cough. Review of Systems Constitutional: Reports: no symptoms. Objective Last 24 Hrs of Vital Signs/I&O Vital Signs Date Time Temp Pulse Resp B/P B/P Pulse O2 O2 Flow FiO2 Mean Ox Delivery Rate 01/02 0846 91 Room Air Room Air 01/02 0800 Room Air 01/02 0622 98.5 78 20 140/64 96 Room Air 01/01 2215 98.5 84 20 154/60 94 Room Air 01/01 1820 95 Room Air 01/01 1506 Nasal 1.0L Cannula 01/01 1459 98.2 98 20 132/70 93 Room Air Intake & Output 01/02 1600 01/02 0800 01/02 0000 Intake Total 400 400 Output Total Balance 400 400 Intake, IV 400 400 Physical Exam General Appearance: Alert, Cooperative, No Acute Distress Skin: No Rashes, No Breakdown Cardiovascular: Regular Rate, Normal S1, Normal S2 Lungs: Clear to Auscultation, poor respiratory effort Abdomen: Normal Bowel Sounds, Soft, No Tenderness Extremities: No Clubbing, No Cyanosis, No Edema Current Medications: Current Medications Sig/Tarun Start time Last Medication Dose Route Stop Time Status Admin Acetaminophen 650 MG Q8P PRN 12/27 2330 AC 12/30 PO 0620 Albuterol Sulfate 3 ML TID 12/30 2100 AC 01/02 INH 0845 Carbidopa/Levodopa 1 TAB 0800,1200,1600,12/28 1200 AC 01/02 PO 0755 Clonazepam 0.5 MG 12/30 0830 AC 01/02 PO 01/06 0829 0755 Clonazepam 0.5 MG 1200,12/28 1200 AC 01/01 PO 01/04 1159 2058 Cyclosporine 1 GTT BID 12/28 09 AC 01/02 OPH 0756 Dextrose/Sodium 1,000 ML Q20H 01/01 0930 DC 01/01 Chloride IV 01/02 0529 0948 Docusate Sodium 100 MG DAILY 01/01 0900 AC 01/02 PO 0755 Entacapone 200 MG 0800,1200,1600,12/28 1200 AC 01/02 PO 0755 Famotidine 20 MG DAILY 12/28 0900 AC 01/02 PO 0756 Guaifenesin 600 MG Q12 12/28 1037 AC 01/02 PO 0756 Heparin Sodium 5,000 UNIT Q8 12/28 1400 AC 01/02 (Porcine) SC 0545 Levothyroxine Sodium 0.075 MG DAILY AC 12/28 0700 AC 01/02 PO 0545 Melatonin 3 MG AT BEDTIME 12/27 2345 AC 01/01 PO 2052 Polyethylene Glycol 17 GM DAILY PRN 01/01 0830 AC PO Senna 187 MG AT BEDTIME PRN 01/01 0830 AC PO Tetrahydrozoline HCl 1 GTT Q4-6 PRN PRN 01/01 1015 AC 01/01 OPH 1315 Tizanidine HCl 1 MG TID 12/27 2359 AC 01/02 PO 0755 Assessment/Plan Assessment: 77-year-old female with PMH significant for Parkinsons, hypothyoidism, depression presented in ER from [facility] for temperature of 102, respiration rate of 38, desaturating to 77% on 2 L, low blood pressure less responsive and less vocal. Patient states that she was having cough since last 1 week. According to nurse patient had pneumonia on chest x-ray and she was initially started on Augmentin for one dose then changed to cefepime yesterday. She received total 3 doses of cefepime. Currently patient looks comfortable, no significant fever spike, blood pressure stable. She has right base crackles. Mild left shift. She has dysphasia and supposed to be on pured and nectar thick diet. Clinical picture consisted with aspiration pneumonia given the location and comorbidities and the fact that she did not improve with cefepime. + Suspected aspiration pneumonia + History of Parkinson's, hypothyroidism, depression Aspiration pneumonia Given parkinsons disease, dysphagia being the risk factors for aspiration. Patient presents with fevers and confusion and Imaging findings consistent with bialteral lower lobe and upper lobe infiltrates. CTA was done yesterday given hypoxia and tachypnea but negative for any PE. * Continue IV unasyn to cover oral ranjan/gram negative and positives. * Urine Legionella and strep antigen negative. * Tylenol as needed for Fever. * Continue Mucinex * TRC/Nebs * Echocardiogram shows normal EF with no regional WM abnormalities. * Continues to be NPO after multiple failed swallow eval attempts. Will proceed with modified barium swallow today, if abnormal will discuss with conservative regarding further goals. H/O parkinsons * Continue Isyyrosoa-nufytisi-[id number] at 8am, 12pm, 4pm, 8pm. * continue tizanidine for muscle relaxation hypothyroidism * TSH, free T4 WNL * Continue levothroxine anxiety * Cotinue clonazepam DVT prophylaxis; SC lovenox Patient is DNR/DNI Problem List: 1. Pneumonia Pain Ratin Pain Location: None Pain Goal: Remain pain free Pain Plan: Pain pathway Tomorrow's Labs & Rationales: None Hermelinda Altamirano MD 01/02/18 1215: Attending MD Review Statement Attending Statement Attending MD Statement: examined this patient, discuss w/resident/PA/CORRESPONDENCE REVIEW CLERK, agreed w/resident/PA/CORRESPONDENCE REVIEW CLERK, discussed with family, reviewed EMR data (avail), discussed with nursing, discussed with case mgmt, reviewed images, amended to note Attending Assessment/Plan: Patient seen and examined, offers no complaints. She has advanced Parkinson's disease and she is very slow to respond. Patient remains nothing by mouth. Vital Signs Date Time Temp Pulse Resp B/P B/P Pulse O2 O2 Flow FiO2 Mean Ox Delivery Rate 01/02 0846 91 Room Air Room Air 01/02 0800 Room Air 01/02 0622 98.5 78 20 140/64 96 Room Air 01/01 2215 98.5 84 20 154/60 94 Room Air 01/01 1820 95 Room Air 01/01 1506 Nasal 1.0L Cannula 01/01 1459 98.2 98 20 132/70 93 Room Air on exam; awake, nad. cv; s1, s2,rrr resp; decreased bs at bases. abd; soft, nt, bs+ ext; no edema no labs A/P; 77 y/o M with pmh sig for Parkinson's disease, depression, hypothyroidism, multiple falls in the past, non-ambulatory, GERD admitted with aspiration pneumonia. Patient on modified barium swallow which shows there was an episode of aspiration of the thin barium contrast. This continues to recommend nothing by mouth as patient high risk for aspiration and her swallowing is very low as she tends to hold food in the mouth and she will not need her nutritional needs. I spoke with patient's conservator again. She has not spoken to patient's family yet to come up with any decisions. Currently patient remains nothing by mouth, on gentle IV hydration and getting IV antibiotics for aspiration pneumonia. She is able to take medications by mouth. She is on heparin subcutaneous for DVT px. Awaiting further decisions from patient's conservator in terms of goals of care and feeding. D/W case management.
[2018-01-02 14:47] VITALS: BP 135/67
--- NOTE | 2018-01-02 17:53 | RADIOLOGY REPORT ---
EXAMINATION: XR PORTABLE CHEST CLINICAL INFORMATION: Confirmation of nasogastric tube placement. COMPARISON: Portable chest 12/28/2017. TECHNIQUE: Portable frontal view of the chest and upper abdomen was obtained. FINDINGS: The nasogastric tube terminates in the stomach with the side-port in the region of the esophagogastric junction. There are improved bibasilar opacities. IMPRESSION: Nasogastric tube in stomach.
[2018-01-02 22:18] VITALS: BP 140/70
[2018-01-03 06:27] VITALS: BP 162/76
--- NOTE | 2018-01-03 08:35 | PN- Housestaff ---
Subjective Follow-up For: Aspiration Pneumonia Failed Swallow Evaluation NGT for feeds Parkinsonism Subjective: Patient was seen and examined. Overnight patient pulled out her NG tube. This morning NG tube was replaced. Patient was placed in bilateral soft restraints to prevent her from pulling out. Patient reports nasal pain. Patient states she is tired and would like to sleep. Denies any other complaints. Review of Systems Constitutional: Reports: see HPI. Objective Last 24 Hrs of Vital Signs/I&O Vital Signs Date Time Temp Pulse Resp B/P B/P Pulse O2 O2 Flow FiO2 Mean Ox Delivery Rate 01/03 0842 94 Room Air 01/03 0627 98.6 84 18 162/76 95 Room Air 01/02 2218 98.3 96 20 140/70 94 Room Air 01/02 2101 92 Room Air 01/02 1600 Room Air 01/02 1447 98.0 78 20 135/67 91 Room Air Physical Exam General Appearance: Alert, Cooperative, No Acute Distress, NG tube in place HEENT: Atraumatic, dry mucosal membranes Cardiovascular: Regular Rate, Normal S1, Normal S2 Lungs: Clear to Auscultation, Normal Air Movement Abdomen: Normal Bowel Sounds, Soft, No Tenderness Current Medications: Current Medications Sig/Tarun Start time Last Medication Dose Route Stop Time Status Admin Acetaminophen 650 MG .STK-MED ONE 01/03 0059 DC PO 01/03 0100 Acetaminophen 1,000 MG ONCE ONE 01/02 1730 DC 01/02 N/A 1 UNIT IV 01/02 1744 1738 Acetaminophen 650 MG Q8P PRN 12/27 2330 AC 01/03 PO 0101 Albuterol Sulfate 3 ML TID 12/30 2100 AC 01/03 INH 1330 Ampicillin Sodium/ 1,500 MG Q6 01/02 1200 AC 01/03 Sulbactam Sodium IV 1216 Sodium Chloride 100 ML Carbidopa/Levodopa 1 TAB 0800,1200,1600,12/28 1200 AC 01/03 PO 1355 Clonazepam 0.5 MG 12/30 0830 AC 01/03 PO 01/06 08 0803 Clonazepam 0.5 MG 1200,12/28 1200 AC 01/03 PO 01/04 1159 1356 Cyclosporine 1 GTT BID 12/28 0900 AC 01/03 OPH 0802 Docusate Sodium 100 MG DAILY 01/01 0900 AC 01/03 PO 0801 Entacapone 200 MG 0800,1200,1600,2000 12/28 1200 AC 01/03 PO 1356 Famotidine 20 MG DAILY 12/28 0900 AC 01/03 PO 0802 Guaifenesin 600 MG Q12 12/28 1037 AC 01/03 PO 0802 Heparin Sodium 5,000 UNIT Q8 12/28 1400 AC 01/03 (Porcine) SC 1357 Levothyroxine Sodium 0.075 MG DAILY AC 12/28 0700 AC 01/03 PO 0621 Melatonin 3 MG AT BEDTIME 12/27 2345 AC 01/02 PO 2020 Polyethylene Glycol 17 GM DAILY PRN 01/01 0830 AC PO Senna 187 MG AT BEDTIME PRN 01/01 0830 AC PO Tetrahydrozoline HCl 1 GTT Q4-6 PRN PRN 01/01 1015 AC 01/01 OPH 1315 Tizanidine HCl 1 MG TID 12/27 2359 AC 01/03 PO 1358 Last 24 Hrs of Lab/Eliceo Results Last 24 Hrs of Labs/Mics: Laboratory Tests 01/03/18 1050: Anion Gap 8, Estimated GFR > 60, BUN/Creatinine Ratio 13.3 Assessment/Plan Assessment: 77-year-old female with PMH significant for Parkinsons, hypothyoidism, depression presented in ER from [facility] for temperature of 102, respiration rate of 38, desaturating to 77% on 2 L, low blood pressure less responsive and less vocal. Patient states that she was having cough since last 1 week. According to nurse patient had pneumonia on chest x-ray and she was initially started on Augmentin for one dose then changed to cefepime yesterday. She received total 3 doses of cefepime. Currently patient looks comfortable, no significant fever spike, blood pressure stable. She has right base crackles. Mild left shift. She has dysphasia and supposed to be on pured and nectar thick diet. Clinical picture consisted with aspiration pneumonia given the location and comorbidities and the fact that she did not improve with cefepime. + Suspected aspiration pneumonia + History of Parkinson's, hypothyroidism, depression Aspiration pneumonia Due to parkinsons which may cause dysphagia and place patient at high risk of aspiration, she was kept NPO. Due to continued aspiration and failed swallow evaluations, an NG tube was placed yesterday which patient pulled out. NG tube was replaced this morning. CXR shows NG tube is in place. Tube feeds were started today. Patient presents with fevers and confusion and Imaging findings consistent with bialteral lower lobe and upper lobe infiltrates. CTA was done yesterday given hypoxia and tachypnea but negative for any PE. * Antibiotics discontinued today. Patient has received 1 week of IV Unasyn. * Urine Legionella and strep antigen negative. * Tylenol as needed for Fever. * Continue Mucinex * TRC/Nebs * Echocardiogram shows normal EF with no regional WM abnormalities. * NG tube re-inserted today. Tube feeds started. Patient is currently on IV fluids. If tolerated feeds, IV fluids will be discontinued. H/O parkinsons * Continue Uyqgetkav-huaiwzus-[id number] at 8am, 12pm, 4pm, 8pm. * continue tizanidine for muscle relaxation hypothyroidism * TSH, free T4 WNL * Continue levothroxine anxiety * Cotinue clonazepam DVT prophylaxis; SC lovenox Patient is DNR/DNI Problem List: 1. Swallowing problem 2. Pneumonia Pain Ratin Pain Location: nose Pain Goal: Pain 4 or less Pain Plan: tylenol PRN Tomorrow's Labs & Rationales: bep
--- NOTE | 2018-01-03 12:23 | PN- Att Addend ---
Attending Addendum Attending Brief Note Patient seen and examined, she was sitting in a recliner. She offers no complaints. She pulled out her NG tube. She is constipated. No BM documented for her. Vital Signs Date Time Temp Pulse Resp B/P B/P Pulse O2 O2 Flow FiO2 Mean Ox Delivery Rate 01/03 0842 94 Room Air 01/03 0627 98.6 84 18 162/76 95 Room Air 01/02 2218 98.3 96 20 140/70 94 Room Air 01/02 2101 92 Room Air 01/02 1600 Room Air 01/02 1447 98.0 78 20 135/67 91 Room Air 01/02 1352 Nasal 1.0L Cannula on exam; awake, nad. cv; s1, s2, rrr resp; scattered rhonchi. abd; soft, nt. ext; no edema Laboratory Tests 01/03 1050 Chemistry Sodium (137 - 145 mmol/L) 142 Potassium (3.5 - 5.1 mmol/L) 4.3 Chloride (98 - 107 mmol/L) 103 Carbon Dioxide (22 - 30 mmol/L) 31 H Anion Gap (5 - 16) 8 BUN (7 - 17 mg/dL) 8 Creatinine (0.5 - 1.0 mg/dL) 0.6 Estimated GFR (>60 ml/min) > 60 BUN/Creatinine Ratio (7 - 25 %) 13.3 A/P: 77 y/o M with pmh sig for Parkinson's disease, depression, hypothyroidism, multiple falls in the past, non-ambulatory, GERD admitted with aspiration pneumonia. Patient on modified barium swallow which shows there was an episode of aspiration of the thin barium contrast. This continues to recommend nothing by mouth as patient high risk for aspiration and her swallowing is very low as she tends to hold food in the mouth and she will not meet her nutritional needs. NG tube was inserted yesterday but patient pulled it out. Inserted and put restraints on. Lengthy discussion with the case management yesterday. After I spoke with patient's conservator who told me that she was going to speak with patient's family, Atty. Gardner whose patient's conservator spoke with the case management Thierry Bates. She approved for the feeding tube. She did mention that there is a legal form called MOLST. This form will have to be filled out by a physician after consulting with extremity, social science manager and hospital legal department in case if the physician and family decide against artificial feeding. At this point we will start her on NG tube feeds but this issue will have to be readdressed next week.. Patient has received 7 days of antibiotics therefore he can stop antibiotics for now. After the NG tube insertion and confirmation with x-ray, we can start her on tube feeds. Once she is able to reach the goal of 2 feeds, her IV fluids can be stopped please start her on aggressive bowel regimen including suppository as there is no bowel movement documented for a few days. patient on heparin subcutaneous for DVT prophylaxis.
--- NOTE | 2018-01-03 12:50 | RADIOLOGY REPORT ---
EXAMINATION: XR PORTABLE CHEST CLINICAL INFORMATION: Status post NG tube placement. COMPARISON: Chest done on 01/02/2018. TECHNIQUE: Portable frontal view of the chest was obtained. FINDINGS: The tip of the enteric tube is seen projecting in the region of the left mid abdomen. Nonspecific focal airspace disease is noted at medial aspect of the right lung base. The remainder of the lung deleon are clear. The heart size is within normal limits. There is no pleural effusion or pneumothorax present. IMPRESSION: Tip of the enteric tube is seen projecting at the left mid abdomen. Nonspecific airspace disease at right lung base medially.
[2018-01-03 15:26] VITALS: BP 120/80
[2018-01-03 22:10] VITALS: BP 148/60
[2018-01-04 07:35] VITALS: BP 140/64
--- NOTE | 2018-01-04 10:53 | PN- Housestaff ---
See Addendum Subjective Follow-up For: aspiration pneumonia history of parkinsons disease Complaints: no complaints Subjective: 77 year old female with PMH significant for Parkinsons disease, depression, hypothyroidism, multiple falls, non ambulatory, and GERD. Patient reports no issues or pain overnight. She did have a recorded Tmax of 101.8 for which blood and urine cultures are pending. She is A&O x 3. She Per RN she tries to pull her NG tube out and continues to require bilateral upper extremity soft restraints. No n/v/d, chest pain, SOB, abdominal pain. Review of Systems Constitutional: Reports: no symptoms. EENTM: Reports: no symptoms. Cardiovascular: Reports: no symptoms. Respiratory: Reports: no symptoms. Gastrointestinal: Reports: no symptoms. Genitourinary: Reports: no symptoms. Musculoskeletal: Reports: no symptoms. Skin: Reports: no symptoms. Neurological/Psychological: Reports: no symptoms. Hematologic/Endocrine: Reports: no symptoms. Immunologic/Allergic: Reports: no symptoms. Objective Last 24 Hrs of Vital Signs/I&O Vital Signs Date Time Temp Pulse Resp B/P B/P Pulse O2 O2 Flow FiO2 Mean Ox Delivery Rate 01/04 0843 98.3 01/04 0829 94 Room Air 01/04 0735 98.3 92 18 140/64 97 Room Air 01/04 0629 101.8 01/03 2210 98.7 95 19 148/60 96 Room Air 01/03 1910 95 Room Air 01/03 1526 98.2 91 18 120/80 94 Intake & Output 01/04 1600 01/04 0800 01/04 0000 Intake Total 500 590 Output Total Balance 500 590 Intake, Other 300 590 Intake, Tube 200 Feeding Physical Exam General Appearance: Alert, Oriented X3, Cooperative, No Acute Distress Skin: No Rashes Skin Temp/Moisture Exam: Warm/Dry Sepsis Skin Exam (color): Normal for Ethnicity HEENT: Atraumatic, PERRLA Neck: Supple Cardiovascular: Regular Rate, Normal S1, Normal S2 Lungs: Clear to Auscultation, slightly decreased breath sounds to left lower lobe possibly 2/2 poor inspiratory effort Abdomen: Normal Bowel Sounds, Soft, No Tenderness Extremities: No Clubbing, No Cyanosis Vascular: Pulses Symmetrical Current Medications: Current Medications Sig/Tarun Start time Last Medication Dose Route Stop Time Status Admin Acetaminophen 650 MG Q8P PRN 12/27 2330 AC 01/04 PO 0629 Albuterol Sulfate 3 ML TID 12/30 2100 AC 01/04 INH 0815 Ampicillin Sodium/ 1,500 MG Q6 01/02 1200 DC 01/03 Sulbactam Sodium IV 1216 Sodium Chloride 100 ML Bisacodyl 10 MG DAILY PRN 01/03 1445 AC MD Carbidopa/Levodopa 1 TAB 0800,1200,1600,12/28 1200 AC 01/04 PO 0845 Clonazepam 0.5 MG 12/30 0830 AC 01/04 PO 01/06 0829 0849 Clonazepam 0.5 MG 1200,12/28 1200 AC 01/03 PO 01/04 1159 1902 Cyclosporine 1 GTT BID 12/28 0900 AC 01/04 OPH 0849 Docusate Sodium 100 MG DAILY 01/01 0900 AC 01/03 PO 0801 Entacapone 200 MG 0800,1200,1600,12/28 1200 AC 01/04 PO 0845 Famotidine 20 MG DAILY 12/28 0900 AC 01/04 PO 0845 Guaifenesin 600 MG Q12 12/28 1037 AC 01/04 PO 0845 Heparin Sodium 5,000 UNIT Q8 12/28 1400 AC 01/04 (Porcine) SC 0509 Levothyroxine Sodium 0.075 MG DAILY AC 12/28 0700 AC 01/04 PO 0509 Melatonin 3 MG AT BEDTIME 12/27 2345 AC 01/03 PO 2052 Polyethylene Glycol 17 GM DAILY PRN 01/01 0830 AC 01/04 PO 0859 Senna 187 MG AT BEDTIME PRN 01/01 0830 AC 01/03 PO 2052 Tetrahydrozoline HCl 1 GTT Q4-6 PRN PRN 01/01 1015 AC 01/01 OPH 1315 Tizanidine HCl 1 MG TID 12/27 2359 AC 01/04 PO 0847 Last 24 Hrs of Lab/Eliceo Results Last 24 Hrs of Labs/Mics: Laboratory Tests 01/04/18 0958: Sodium Pending, Potassium Pending, Chloride Pending, Carbon Dioxide Pending, Anion Gap Pending, BUN Pending, Creatinine Pending, BUN/Creatinine Ratio Pending 01/03/18 1050: Anion Gap 8, Estimated GFR > 60, BUN/Creatinine Ratio 13.3 Microbiology 01/04 07 BLOOD: Blood Culture - RECD 01/04 0650 BLOOD: Blood Culture - RECD 01/04 06 URINE ROUT: Urine Culture - ORD Assessment/Plan Assessment: Assessment: 77 year old female with PMH of Parkinson's disease x 22 yrs, depression, hypothyroidism, multiple falls, non ambulatory, and GERD who was admitted for aspiration pneumonia. Patient underwent multiple barium swallow studies and was not able to tolerate thin liquids. She was kept NPO initially and after failing the swallow studies and discussion with her conservator, a NG tube was placed and she was started on Tube feeds. She has tolerated the tube feeds well and is currently at 35mL/hr with a goal of 45mL/hr. She was treated with abx Unasyn for two days for aspiration pneumonia. She was continued on her Parkinson's home medication regimen during this hospital course. Her Tmax of 101.8 was uncharacteristic for her hospital stay and clinically she appears stable. I do not feel this temperature is indicative of an infectious process, but we will analyze with blood and urine cultures to identify any source of infection. Plan: -Follow up urine and blood cx -MOLST form to be filled out 01/05/18 by a MD as legally required per conservator -Further discussion regarding PEG tube placement-will require GI consult if the decision is made to place PEG tube -Continue tube feeds for now titrating up to goal of 45mL/hr of Jevity Problem List: 1. Parkinson's disease 2. Swallowing problem 3. Hypothyroidism 4. Depression 5. Aspiration pneumonia Pain Ratin Pain Location: none Pain Goal: Remain pain free Pain Plan: see A/P Tomorrow's Labs & Rationales: none
[2018-01-04 14:31] VITALS: BP 146/70
[2018-01-04 21:55] VITALS: BP 104/60
[2018-01-05 06:52] VITALS: BP 112/64
--- NOTE | 2018-01-05 07:07 | PN- Housestaff ---
See Addendum Subjective Follow-up For: aspiration pneumonia Complaints: no complaints Subjective: No acute events overnight. Patient states she has no pain. She states she feels better now that she is receiving tube feeds. She appears more alert and responsive. Denies fever, chills, n/v/d, chest pain, SOB, abdominal pain. Review of Systems Constitutional: Reports: see HPI. Objective Last 24 Hrs of Vital Signs/I&O Vital Signs Date Time Temp Pulse Resp B/P B/P Pulse O2 O2 Flow FiO2 Mean Ox Delivery Rate 01/05 0652 97.9 82 18 112/64 96 Room Air 01/04 2155 98.3 85 20 104/60 95 01/04 1845 94 Room Air 01/04 1431 97.8 89 20 146/70 95 01/04 1215 98.3 01/04 0843 98.3 01/04 0829 94 Room Air 01/04 0735 98.3 92 18 140/64 97 Room Air Intake & Output 01/05 0800 01/05 0000 01/04 1600 Intake Total 510 255 530 Output Total 300 Balance 510 255 230 Intake, Oral 0 Intake, Other 100 Intake, Tube 360 180 280 Feeding Intake, Tube 150 75 150 Irrigant Number 0 Bowel Movements Output, Urine 300 Physical Exam General Appearance: Alert, Cooperative, No Acute Distress Skin: No Rashes, No Breakdown, sacral area without erythema or breakdown Skin Temp/Moisture Exam: Warm/Dry HEENT: Atraumatic, PERRLA Neck: Supple Cardiovascular: Regular Rate, Normal S1, Normal S2, No Murmurs Lungs: Clear to Auscultation, Normal Air Movement Abdomen: Normal Bowel Sounds, Soft, No Tenderness Extremities: Normal Pulses, No Tenderness/Swelling Vascular: Normal Pulses, Pulses Symmetrical Assessment/Plan Assessment: 77 year old female with Parkinson's disease for 22 years, depression, hypothyroidism, h/o falls, GERD, non ambulatory admitted with aspiration pneumonia. She has failed several swallow evaluations while inpatient. Discussion was had regarding PEG tube placement. Patient and are against this procedure and patient wishes to return to care facility to live out her life. Court appointed conservator wants to have PEG placed. and patient now requesting Ethics Commitee be consulted. #aspiration PNA -completed abx -nutritional requirements in setting of NPO: NG tube currently running at goal 45ml/hr. Custodial nutrition route to be determined with conservator/patient/ ethics commitee Chronic illness -home medications DVT Prophylaxis: Heparin Problem List: 1. Pneumonia Pain Ratin Pain Location: none Pain Goal: Remain pain free Pain Plan: see A/P Tomorrow's Labs & Rationales: none
[2018-01-05 14:20] VITALS: BP 110/60
[2018-01-05 19:30] VITALS: BP 160/68
--- NOTE | 2018-01-05 20:04 | Event Note ---
Event Note Event Note: Rapid response was called when Ms Branch was found to be more anxious and had increased respiratory rate. On assessment, she was in mild distress. VItals stable Temp 99.7, BP160/68,RR 20, pulse ox 94 on 2L oxygen. On examination, lungs clear, no abnormal heart sounds were found. No abdominal tenderness. She was responding to verbal status. Differentials-likely anxiety exacerbating her clinical situation, or aspiration pneumonia. Tube Feeds were held momentarily, given suspicion for aspiration pneumonia. EKG did not reveal any acute evidence of OK. Lab findings did not reveal any findings of infection, abnormal renal function. Troponin is negative. Chest x- ray did not reveal any opacity, suggestive of aspiration pneumonia. After she received TRC/beta agonist treatment, she was comfortable and did not have any distress. Vitals remain stable. Informed the attending..at 8:18pm. Reached out the conservator, await call back
[2018-01-05 20:39] LABS: ABSOLUTE BASOPHIL COUNT 0 /CUMM (0.0-0.2); ABSOLUTE EOSINOPHIL COUNT 0.1 /CUMM (0.0-0.7); ABSOLUTE GRANULOCYTE CT 2.9 /CUMM (1.4-6.5); ABSOLUTE LYMPH COUNT 1.1 /CUMM (1.2-3.4); ABSOLUTE MONOCYTE COUNT 0.6 /CUMM (0.10-0.60); BASOPHIL % 0.2 % (0.0-2.0); GRANULOCYTE % 61.6 % (42.2-75.2); HEMATOCRIT 28.5 % (37-47); MEAN CORPUSCULAR HGB CONC 33.5 G/DL (33.0-37.0); MEAN CORPUSCULAR VOLUME 92.5 FL (81.0-99.0); MEAN PLATELET VOLUME 8.5 FL (7.4-10.4); RBC DISTRIBUTION WIDTH 15.3 % (11.5-14.5); RED BLOOD CELL CT 3.09 /CUMM (4.20-5.40); WHITE BLOOD CELL COUNT 4.8 /CUMM (4.8-10.8)
[2018-01-05 20:47] LABS: PLATELET COUNT 695 /CUMM (130-400)
--- NOTE | 2018-01-05 21:19 | RADIOLOGY REPORT ---
EXAMINATION: XR PORTABLE CHEST CLINICAL INFORMATION: Short of breath. COMPARISON: Chest 01/03/2018 TECHNIQUE: Portable frontal view of the chest was obtained. FINDINGS: The lungs are well-expanded and clear of acute process. The heart size and pulmonary vascularity is normal. There is mild spondylosis dorsal spine. No lytic process. IMPRESSION: No acute cardiopulmonary process seen.
[2018-01-05 21:50] VITALS: BP 106/60
[2018-01-06 06:51] VITALS: BP 102/60
--- NOTE | 2018-01-06 08:45 | PN- Housestaff ---
See Addendum Subjective Follow-up For: aspiration pneumonia Complaints: no complaints Subjective: Rapid response called yesterday evening between 19:00-20:00. Patient appeared in distress. Work up included VS,CXR, EKG, Labs (trop) and was negative. Patient was given Klonopin and symptoms resolved. Tube feeds were also held for fear of aspiration and have not been restarted. This morning she is more conversant than the previous day. She states she was having back pain between her shoulder blades last night at the time the Rapid Response was called. She states that pain has since resolved and she has no complaints at this time. Denies back pain, chest pain, SOB, abd pain, n/v/d, fever, chills. Review of Systems Constitutional: Reports: see HPI. Objective Last 24 Hrs of Vital Signs/I&O Vital Signs Date Time Temp Pulse Resp B/P B/P Pulse O2 O2 Flow FiO2 Mean Ox Delivery Rate 01/06 0651 97.6 82 16 102/60 98 Room Air / 2150 98.6 83 18 106/60 95 07/02 1930 99.2 10 22 160/68 91 Room Air 07/ 1800 95 Room Air 07/ 1420 98.6 83 22 110/60 96 Intake & Output / 1600 07/03 0800 07/03 0000 Intake Total 347 Output Total Balance 347 Intake, IV 10 Intake, Oral 0 Intake, Tube 337 Feeding Number 2 Bowel Movements Physical Exam General Appearance: Alert, Cooperative, No Acute Distress Skin: No Rashes, No Breakdown Skin Temp/Moisture Exam: Warm/Dry HEENT: Atraumatic, PERRLA Neck: Supple Cardiovascular: Regular Rate, Normal S1, Normal S2, No Murmurs Lungs: Clear to Auscultation, Normal Air Movement Abdomen: Normal Bowel Sounds, Soft, No Tenderness Extremities: No Cyanosis, No Edema, Normal Pulses Assessment/Plan Assessment: 77 year old female with PMH Parkinson's for 22 years, depression, hypothyroidism , h/o falls, non ambulatory, GERD admitted for aspiration pneumonia. She subsequently failed multiple swallow evals and NG tube was placed. Rapid response was called on 01/05 and work up was negative; symptoms resolved after administration of Klonopin. #Aspiration Pneumonia and inability to eat -tube feeds per NG -Discuss plan/decision with Ethics Commitee today regarding PEG tube placement. Patient is against placement. -Abx completed #Chronic illnesses including Parkinson's -continue home medications DVT Prophylaxis: heparin Problem List: 1. Parkinson's disease 2. Swallowing problem 3. Aspiration pneumonia Pain Ratin Pain Location: none Pain Goal: Remain pain free Pain Plan: see a/p Tomorrow's Labs & Rationales: none
[2018-01-06 09:36] LABS: ABSOLUTE BASOPHIL COUNT 0 /CUMM (0.0-0.2); ABSOLUTE EOSINOPHIL COUNT 0.2 /CUMM (0.0-0.7); ABSOLUTE GRANULOCYTE CT 2.6 /CUMM (1.4-6.5); ABSOLUTE LYMPH COUNT 1.1 /CUMM (1.2-3.4); ABSOLUTE MONOCYTE COUNT 0.4 /CUMM (0.10-0.60); BASOPHIL % 0.6 % (0.0-2.0); EOSINOPHIL % 4.1 % (0-5); HEMATOCRIT 28.2 % (37-47); MEAN CORPUSCULAR HGB 31.5 PG (27.0-31.0); MEAN CORPUSCULAR HGB CONC 33.3 G/DL (33.0-37.0); MEAN CORPUSCULAR VOLUME 94.6 FL (81.0-99.0); MEAN PLATELET VOLUME 9.4 FL (7.4-10.4); PLATELET COUNT 617 /CUMM (130-400); RBC DISTRIBUTION WIDTH 15.8 % (11.5-14.5); RED BLOOD CELL CT 2.98 /CUMM (4.20-5.40); WHITE BLOOD CELL COUNT 4.3 /CUMM (4.8-10.8)
[2018-01-06 13:59] VITALS: BP 110/60
--- NOTE | 2018-01-06 15:04 | Cons- Gastroenterology ---
General Information and HPI Consulting Request Date of Consult: 01/05/18 Requested By: Jaime Strong MD Reason for Consult: Oropharyngeal dysphagia with high risk of aspiration Allergies/Medications Allergies: Coded Allergies: amantadine (STOMACH UPSET 10/02/17) indomethacin (UPSET STOMACH 10/02/17) Uncoded Allergies: dust (UNKNOWN 10/07/14) Home Med List: Acetaminophen (Acetaminophen ER) 650 MG TABLET.ER 1 TAB PO TID PRN pain ( Reported) Amoxicillin/Potassium Clav (Augmentin 875-125 Tablet) 875 MG-125 MG TABLET 1 TAB PO BID ASPIRATION PNEUMONIA Carbidopa/Levodopa/Entacapone (Rqhaisymm-Xmwqjold-Zeeb 75 MG) 18.75 MG-75 MG-200 MG TABLET 1 TAB PO 4 TIMES/DAY PARKINSONS DISEASE (Reported) TAKE AT 0800, 1200, 1599 AND 1999. Clonazepam 0.5 MG TABLET 1 TAB PO TID anxiety (Reported) Take at 0830 am, 1200 pm and 0800 pm. Cyclosporine (Restasis) 0.05 % DROPERETTE 1 GTT OPH BID EYE (Reported) Levothyroxine Sodium (Levoxyl) 75 MCG TABLET 1 TAB PO DAILY AC THYROID ( Reported) Omeprazole 20 MG CAPSULE.DR 1 CAP PO DAILY GI (Reported) Polyethylene Glycol 3350 (Miralax) 17 GRAM POWD.PACK 1 PAC PO DAILY PRN CONSTIPATION (Reported) dissolve in water Ranitidine HCl (Zantac) 150 MG TABLET 1 TAB PO DAILY GI (Reported) Tizanidine HCl 2 MG CAPSULE 0.5 TAB PO TID MUSCLE RELAXER (Reported) Current Medications: Current Medications Sig/Tarun Start time Last Medication Dose Route Stop Time Status Admin Acetaminophen 650 MG .STK-MED ONE 01/05 0104 DC PO 01/05 0105 Acetaminophen 650 MG Q8P PRN 12/27 2330 AC 01/05 PO 0106 Albuterol Sulfate 3 ML BID 01/05 2100 AC INH Albuterol Sulfate 3 ML TID 12/30 2100 DC 01/05 INH 0809 Bisacodyl 10 MG DAILY PRN 01/03 1445 AC LA Carbidopa/Levodopa 1 TAB 0800,1200,1600,12/28 1200 AC 01/05 PO 1712 Clonazepam 0.5 MG 1200,01/05 2000 AC PO 01/12 1959 Clonazepam 0.5 MG 12/30 0830 AC 01/05 PO 01/13 0828 0806 Cyclosporine 1 GTT BID 12/28 0900 AC 01/05 OPH 0806 Docusate Sodium 100 MG DAILY 01/01 0900 AC 01/03 PO 0801 Entacapone 200 MG 0800,1200,1600,2000 12/28 1200 AC 01/05 PO 1711 Famotidine 20 MG DAILY 12/28 0900 AC 01/05 PO 0806 Guaifenesin 600 MG Q12 12/28 1037 AC 01/04 PO 0845 Heparin Sodium 5,000 UNIT Q8 12/28 1400 AC 01/05 (Porcine) SC 1302 Levothyroxine Sodium 0.075 MG DAILY AC 12/28 0700 AC 01/05 PO 0549 Melatonin 3 MG AT BEDTIME 12/27 2345 AC 01/04 PO 1947 Patient Medication 1 ED ONE ONE 01/05 1100 [facility] ED 01/05 1101 Polyethylene Glycol 17 GM DAILY PRN 01/01 0830 AC 01/05 PO 1302 Senna 187 MG AT BEDTIME PRN 01/01 0830 AC 01/03 PO 2052 Tetrahydrozoline HCl 1 GTT Q4-6 PRN PRN 01/01 1015 AC 01/01 OPH 1315 Tizanidine HCl 1 MG TID 12/27 2359 AC 01/05 PO 1302 Past History Travel History Traveled to [place] past 21 day No Medical History Blood Transfusion Hx: No Neurological: dementia, Parkinson's disease EENT: cataracts Cardiovascular: CAD Respiratory: NONE Gastrointestinal: constipation Hepatic: NONE Renal: NONE Musculoskeletal: falls Psychiatric: anxiety, depression Endocrine: hypothyroidism Blood Disorders: NONE Cancer(s): NONE STATIONARY STEAM ENGINEER/Reproductive: NONE Surgical History Surgical History: BACK SURGERY TONSILECTOMY Family History Relations & Conditions If Any: FATHER FH: myocardial infarction BROTHER FH: myocardial infarction Psychosocial History Where Do You Live? [facility] Who Do You Live With? spouse Services at Home: Nursing Primary Language: Amharic Smoking Status: Unknown If Ever Smoked ETOH Use: denies use Illicit Drug Use: denies illicit drug use Functional Ability ADLs Needs Assist: dressing, eating, toileting, bathing. Ambulation: walker, CAR[employer]AIR IADLs Needs Assist: shopping, housework, finances, food prep, telephone, transportation, medication admin. Exam & Diagnostic Data Vital Signs and I&O Vital Signs Date Time Temp Pulse Resp B/P B/P Pulse O2 O2 Flow FiO2 Mean Ox Delivery Rate 01/05 1420 98.6 83 22 110/60 96 01/05 0828 96 Room Air 01/05 0800 Room Air 01/05 0652 97.9 82 18 112/64 96 Room Air 01/04 2155 98.3 85 20 104/60 95 01/04 1845 94 Room Air Intake & Output 01/05 1600 01/05 0400 01/04 1600 01/04 0400 01/03 1600 01/03 0400 Intake Total 8457 192 7769 590 225 Output Total 300 300 300 Balance 840 255 730 590 -75 Intake, IV 100 Intake, Oral 0 Intake, Other 120 400 590 75 Intake, Tube 720 180 480 Feeding Intake, Tube 300 75 150 50 Irrigant Number 0 Bowel Movements Output, Urine 300 300 300 Physical Exam: Abdomen negative except for right upper quadrant well-healed scar. Results Pertinent Lab Results: Laboratory Tests 01/04 01/03 0958 1050 Chemistry Sodium (137 - 145 mmol/L) 140 142 Potassium (3.5 - 5.1 mmol/L) 4.0 4.3 Chloride (98 - 107 mmol/L) 99 103 Carbon Dioxide (22 - 30 mmol/L) 32 H 31 H Anion Gap (5 - 16) 8 8 BUN (7 - 17 mg/dL) 12 8 Creatinine (0.5 - 1.0 mg/dL) 0.7 0.6 Estimated GFR (>60 ml/min) > 60 > 60 BUN/Creatinine Ratio (7 - 25 %) 17.1 13.3 Assessment/Plan Assessment/Recommendations: Patient with Parkinson's disease, and aspiration pneumonia. Swallowing evaluation/modified barium swallow revealed high risk of aspiration. The patient herself seems to be hesitant about the insertion of a feeding gastrostomy tube. Per the patient's RN, awaiting discussion between medical attending and court appointed conservator. * Please discontinue tube feedings at midnight * Check PT/INR in the morning * Possible endoscopic insertion of feeding gastrostomy tube tomorrow afternoon; will discuss with medical team in the morning. Consult Acknowledgment - Thank you for your consult request.
[2018-01-06 22:47] VITALS: BP 102/60
[2018-01-07 06:30] VITALS: BP 100/56
--- NOTE | 2018-01-07 08:32 | PN- Housestaff ---
See Addendum Subjective Follow-up For: aspiration PNA Complaints: wants soft restraints removed Subjective: Mrs. Branch had no acute events overnight. This morning she is requesting to have the soft restraints removed. She states she understands they were placed to prevent pulling out the NG tube, but states she will not pull it out if we d/ c the restraints. She is mentating quite well this morning and able to display more emotive facial expressions. Denies fever, chills, n/v/d, chest pain, SOB, abd pain. Review of Systems Constitutional: Reports: see HPI. Objective Last 24 Hrs of Vital Signs/I&O Vital Signs Date Time Temp Pulse Resp B/P B/P Pulse O2 O2 Flow FiO2 Mean Ox Delivery Rate 01/07 0902 94 Room Air 01/07 0630 98.5 80 18 100/56 95 Room Air 01/06 2247 98.3 95 20 102/60 97 Room Air 01/06 2010 94 Room Air 01/06 1600 Room Air 01/06 1359 98.2 75 20 110/60 96 01/06 1357 94 Room Air Intake & Output 01/07 1600 04 0800 01/07 0000 Intake Total 610 510 Output Total Balance 610 510 Intake, Other 100 Intake, Tube 510 360 Feeding Intake, Tube 150 Irrigant Physical Exam General Appearance: Alert, Cooperative, No Acute Distress, thin/frail appearing female Skin: No Rashes, No Breakdown Skin Temp/Moisture Exam: Warm/Dry HEENT: Atraumatic, PERRLA Neck: Supple Cardiovascular: Regular Rate, Normal S1, Normal S2 Lungs: Clear to Auscultation, Normal Air Movement Abdomen: Normal Bowel Sounds, Soft, No Tenderness Extremities: bilateral soft restraints upper extremities; wrists without rash or skin breakdown. IV site without erythema or swelling Assessment/Plan Assessment: 77 year old female with 22 year h/o Parkinsons disease, depression, hypothyroidism, h/o multiple falls, non ambulatory, GERD admitted for aspiration PNA. NG tube was placed with tube feeds running at 45mL/hr. She is continues to state she does not want a feeding tube and understands the risk of aspiration and even . The ethics commitee has been involved with her case as well as the court appointed conservator. PEG tube placement will be held at this time. Palliative care (Dr. Santos) will come see the patient and her family ( and step daughters) on 01/08 to discuss further care options. #Aspiration PNA -NPO -Tube feeds 45mL/hr (running at goal) for nutrition -completed abx: Ceftaxidime; azithromycin; unasyn -Continue soft restraints to prevent NG tube removal #chronic illness -continue home meds Problem List: 1. Parkinson's disease 2. Swallowing problem 3. Parkinsons disease Pain Ratin Pain Location: none Pain Goal: Remain pain free Pain Plan: see a/p Tomorrow's Labs & Rationales: none
[2018-01-07 15:26] VITALS: BP 98/60
[2018-01-07 22:33] VITALS: BP 100/60
[2018-01-08 06:38] VITALS: BP 112/60
--- NOTE | 2018-01-08 07:46 | PN- Housestaff ---
See Addendum Subjective Follow-up For: aspiration PNA Complaints: no complaints Subjective: Patient states she has no pain or complaints. No acute events overnight. She is waiting to be seen by Palliative Care today. Denies fever, chills, n/v/d, chest pain, SOB, abd pain. Review of Systems Constitutional: Reports: see HPI. Objective Last 24 Hrs of Vital Signs/I&O Vital Signs Date Time Temp Pulse Resp B/P B/P Pulse O2 O2 Flow FiO2 Mean Ox Delivery Rate 01/08 0638 98.4 80 20 112/60 96 Room Air 01/07 2233 98.1 82 20 100/60 96 Room Air 01/07 1845 96 Room Air 01/07 1526 97.5 91 20 98/60 96 01/07 0902 94 Room Air Intake & Output 01/08 0800 01/08 0000 01/07 1600 Intake Total 510 255 800 Output Total Balance 510 255 800 Intake, Oral 800 Intake, Tube 360 180 Feeding Intake, Tube 150 75 Irrigant Number 1 Bowel Movements Physical Exam General Appearance: Alert, Cooperative, No Acute Distress, Oriented to person and place. Had difficulty with the year; stated it was 2019. Skin: No Rashes, No Breakdown, IV site clear from erythema or edema Skin Temp/Moisture Exam: Warm/Dry HEENT: Atraumatic, PERRLA, NG tube in place and functional Neck: Supple Cardiovascular: Regular Rate, Normal S1, Normal S2, No Murmurs Lungs: Clear to Auscultation, Normal Air Movement Abdomen: Normal Bowel Sounds, Soft, No Tenderness Extremities: No Edema, Normal Pulses, BUE with soft restraints in place. No skin breakdown or rashes present. Assessment/Plan Assessment: 77 year old female with 22 year h/o Parkinsons disease, depression, hypothyroidism, h/o multiple falls, non ambulatory, GERD admitted for aspiration PNA. NG tube was placed with tube feeds running at 45mL/hr. She continues to state she does not want a feeding tube and understands the risk of aspiration and even . The ethics commitee has been involved with her case as well as the court appointed conservator. PEG tube placement will be held at this time. Palliative care (Dr. Santos) will come see the patient and her family ( and step daughters) on 01/08 to discuss further care options. #Aspiration PNA -NPO -Tube feeds 45mL/hr (running at goal) for nutrition -completed abx: Ceftaxidime; azithromycin; unasyn -Continue soft restraints to prevent NG tube removal #chronic illness -continue home meds DVT prophylaxis: Heparin (will discuss heparin vs lovenox), ALPS Problem List: 1. Parkinson's disease 2. Swallowing problem 3. Aspiration pneumonia Pain Ratin Pain Location: none Pain Goal: Remain pain free Pain Plan: see a/p Tomorrow's Labs & Rationales: none
--- NOTE | 2018-01-08 09:38 | Cons- Palliative Care ---
General Information and HPI Consulting Request Date of Consult: 01/08/18 Requested By: Jaime Strong MD Reason for Consult: Concerns for aspiration pneumonia Recommendation for PEG tube Source patient, family, old records Exam Limitations clinical condition History of Present Illness: Mrs. Branch is 77 year old female with past medical history significant for Parkinson's disease diagnosed 22 years ago (patient is non ambulatory, dependent in ADLs and IADLs), hypothyroidism, depression who presented to ED on 12/27/17 from [facility] for concerns of aspiration pneumonia. Patient was treated with IV Unasyn for 1 week. Blood culture, respiratory culture are negative. Patient denied any shortness of breath, cough. She is saturating above 95% on room air. Patient has history of dysphagia, had a FEES study at [place] on 12/08 with recommendation to downgrade diet to pure and nectar thick. Patient was able to tolerate diet well with no reports of choking per the nurse at [place] (H&P attending note). Swallowing evaluation was obtained in-house, patient failed swallow eval and barium study was proceeded. Patient was found to have delay in swallow initiation, moderate amount of oral residual and mild amount of pharyngeal residual with aspiration of thin liquid. Because of significant risk of aspiration, NG tube was inserted with plans for PEG tube. Bilateral soft wrist restraint were applied because of patient's attempt to pull out her NG tube. Patient continued to complain about the NG tube and the soft restraints. Patient was interviewed today, she is alert, able to communicate appropriately and answers all of my questions. Patient oriented to self, her , [place] president Arya. Alert to place [facility]. Time 2017. Upon asking the patient about the NG tube, she answered "I do not want it". Upon asking about the PEG tube she answered "I do not want it", I asked her if she knows the consequences and she answered "choking", I proceeded that choking can result in bad pneumonia that might be the cause of and patient said "if God wants to take me he will take me". Upon interviewing the nurse, house staff and speech therapist, patient is very consistent about her wishes not to have the PEG tube placed. Patient is distressed from the NG tube and the bilateral wrist soft restraint. Allergies/Medications Allergies: Coded Allergies: amantadine (STOMACH UPSET 10/02/17) indomethacin (UPSET STOMACH 10/02/17) Uncoded Allergies: dust (UNKNOWN 10/07/14) Home Med List: Acetaminophen (Acetaminophen ER) 650 MG TABLET.ER 1 TAB PO TID PRN pain ( Reported) Amoxicillin/Potassium Clav (Augmentin 875-125 Tablet) 875 MG-125 MG TABLET 1 TAB PO BID ASPIRATION PNEUMONIA Carbidopa/Levodopa/Entacapone (Msksztavo-Zsfwruzp-Peos 75 MG) 18.75 MG-75 MG-200 MG TABLET 1 TAB PO 4 TIMES/DAY PARKINSONS DISEASE (Reported) TAKE AT 0800, 1200, 1599 AND 1999. Clonazepam 0.5 MG TABLET 1 TAB PO TID anxiety (Reported) Take at 0830 am, 1200 pm and 0800 pm. Cyclosporine (Restasis) 0.05 % DROPERETTE 1 GTT OPH BID EYE (Reported) Levothyroxine Sodium (Levoxyl) 75 MCG TABLET 1 TAB PO DAILY AC THYROID ( Reported) Omeprazole 20 MG CAPSULE.DR 1 CAP PO DAILY GI (Reported) Polyethylene Glycol 3350 (Miralax) 17 GRAM POWD.PACK 1 PAC PO DAILY PRN CONSTIPATION (Reported) dissolve in water Ranitidine HCl (Zantac) 150 MG TABLET 1 TAB PO DAILY GI (Reported) Tizanidine HCl 2 MG CAPSULE 0.5 TAB PO TID MUSCLE RELAXER (Reported) Current Medications: Current Medications Sig/Tarun Start time Last Medication Dose Route Stop Time Status Admin Acetaminophen 650 MG Q8P PRN 12/27 2330 AC 01/09 PO 0108 Albuterol Sulfate 3 ML BID 01/05 2100 DC 01/07 INH 1845 Bisacodyl 10 MG DAILY PRN 01/03 1445 AC ME Carbidopa/Levodopa 1 TAB 0800,1200,1600,12/28 1200 AC 01/09 PO 0802 Clonazepam 0.5 MG 1200,01/05 AC 01/08 PO 01/12 1959 2011 Clonazepam 0.5 MG 0830 12/30 0830 AC 01/09 PO 01/13 0828 0805 Cyclosporine 1 GTT BID 12/28 0900 AC 01/09 OPH 0803 Entacapone 200 MG 0800,1200,1600,12/28 1200 AC 01/09 PO 0802 Famotidine 20 MG DAILY 12/28 09 AC 01/09 PO 0802 Heparin Sodium 5,000 UNIT Q8 12/28 1400 AC 01/09 (Porcine) SC 0540 Levothyroxine Sodium 0.075 MG DAILY AC 12/28 0700 AC 01/09 PO 0540 Lorazepam 0.5 MG ONCE ONE 01/08 1915 DC 01/08 IV 01/09 1916 193 Melatonin 3 MG AT BEDTIME 12/27 2345 AC 01/08 PO 2010 Polyethylene Glycol 17 GM DAILY PRN 01/01 0830 AC 01/05 PO 130 Senna 187 MG AT BEDTIME PRN 01/01 0830 AC 01/03 PO 2051 Tetrahydrozoline HCl 1 GTT Q4-6 PRN PRN 01/01 1015 AC 01/05 OPH 2022 Tizanidine HCl 1 MG TID 12/27 2359 AC 01/09 PO 08 Review of Systems Review of Systems Constitutional: Denies: chills, fever. EENTM: Denies: blurred vision, nasal pain. Respiratory: Denies: cough, short of breath. Cardiovascular: Denies: chest pain, palpitations. Gastrointestinal/Abdominal: Denies: abdominal pain, nausea. Genitourinary: Denies: dysuria. Past History Medical History Blood Transfusion Hx No Neurological: dementia, Parkinson's disease EENT: cataracts Cardiovascular: CAD Respiratory: NONE Gastrointestinal: constipation Hepatic: NONE Renal: NONE Musculoskeletal: falls Psychiatric: anxiety, depression Endocrine: hypothyroidism Blood Disorders: NONE Cancer(s): NONE SENIOR MECHANICAL DESIGN ENGINEER/Reproductive: NONE Surgical History Surgical History: BACK SURGERY TONSILECTOMY Family History Relations & Conditions If Any FATHER FH: myocardial infarction BROTHER FH: myocardial infarction Psychosocial History Where Do You Live? Snf Facility Who Do You Live With? spouse Services at Home: Nursing Primary Language: Lithuanian Smoking Status: Unknown If Ever Smoked ETOH Use: denies use Illicit Drug Use: denies illicit drug use Karnofsky Performance Scale: 20 Living Will? no Power of Education Supervisor/HCP? conservator Functional Ability ADLs Needs Assist: dressing, eating, toileting, bathing. Ambulation: walker, CARGO CHAIR IADLs Needs Assist: shopping, housework, finances, food prep, telephone, transportation, medication admin. Exam & Diagnostic Data Last 24 Hrs of Vitals/I&Os: Vital Signs Date Time Temp Pulse Resp B/P B/P Pulse O2 O2 Flow FiO2 Mean Ox Delivery Rate 01/08 1010 94 Room Air 07/05 0638 98.4 80 20 112/60 96 Room Air / 2233 98.1 82 20 100/60 96 Room Air / 1845 96 Room Air / 1526 97.5 91 20 98/60 96 Intake & Output 07/05 1600 07/05 0800 07/05 0000 Intake Total 510 255 Output Total Balance 510 255 Intake, Tube 360 180 Feeding Intake, Tube 150 75 Irrigant Physical Exam General Appearance: no apparent distress, alert, awake Head: atraumatic, normal appearance Eyes: Bilateral: normal appearance, PERRL, EOMI. Ears, Nose, Throat: normal pharynx, normal ENT inspection, hearing grossly normal Neck: normal inspection Respiratory: normal breath sounds, chest non-tender, no respiratory distress, lungs clear Cardiovascular: regular rate/rhythm Gastrointestinal: normal bowel sounds, soft, non-tender Extremities: normal inspection, normal capillary refill, normal range of motion, no edema Neurologic/Psych: awake, alert Assessment/Plan Assessment Mrs. Branch is 77 year old female with past medical history significant for Parkinson's disease diagnosed 22 years ago (patient is non ambulatory, dependent in ADLs and IADLs), hypothyroidism, depression, dysphagia who presented to ED on 12/27/17 from [facility] for concerns of aspiration pneumonia. Palliative care consultation for concerns of aspiration risk in light of recommendation for PEG tube placement. Apparently has been suffering from parkinsonism for a over 2 decades with severe and significant deterioration in her general physical condition. Patient at the moment is totally dependent in ADL and IADL along with financial issues to meet her care goal. Patient has been in and out of nursing facility because of financial issues. Had multiple hospital admissions this year, October 03 and December 27 2017 becuase of parkinsons disease complication. Patient has severe rigidity, bradykinesia that made her nonambulatory, hypokinetic dysarthria, hypophonia, dysphagia from her advanced parkinsonism. Based on above I think patient is appropriate for palliative care. Patient is aware of her decision consequences and she consistently verbalize her wishes not to have PEG tube placed. PEG tube placement was recommended based on swallow evaluation , risk of aspiration and concerns that patient will not be able to meet her nutritional needs. Recommendation -Psychiatric evaluation for capacity -Goal of care discussion with patient/family/conservator -Repeat swallow evaluation with plans to advance diet to pure and thick if possible As Ranked by this Provider Problem List: 1. Aspiration pneumonia Consult Acknowledgment - Thank you for your consult request. Attending MD Review Statement Attending Statement Attending MD Statement: examined this patient, discuss w/resident/PA/ASSEMBLER INSULATOR, agreed w/resident/PA/ASSEMBLER INSULATOR, discussed with family, reviewed EMR data (avail), discussed w/ case mgmt, amended to note Attending Assessment/Plan: Additional recommendations: 1. Obtain psychiatric consultation to assess for CAPACITY TO MAKE MEDICAL DECISIONS - as patient is reportedly conserved for person and estate, administrative aspects of consenting to a DNR order, decisions to forego aggressive medical interventions are the obligation and responsibility of the conservator who serves in administrative capacity as the voice/pen of the patient - on behalf of the probate court who essential is reponsible for the patient. In this situation where there are questions as to whether the patient is in fact capable of making a decision to pursue comfort care or to forego a medical intervention such as gastrostomy, a re-evaluation of her capacity is indicated. If capacity is determined, then a peition to the probate court to revise the conservatorship decree is warranted. 2. The role of the conservator is to act on behalf of the conserved individual and to speak as if the were speaking. Hence, a patient's previously stated goals /wishes/directives should be followed to the best extent possible. Should a situation arise in which the conservator fails in this obligation, then contact with the patient's COURT APPOINTED DRILL BIT SHARPENER is indicated. This is a separate individual (from the conservator) who's job is to represent the rights of the conserved individual and should assist in any situation involving the patient and probate issues. Typically, the probate court can advise on who this individual is. 3. The patient is reportedly able to tolerate thickened liquids, pureed consistency diet as of 01/08/2018. NGT and restraints should be removed as quickly as possible. It is doubtful of the value of a gastrostomy or NGT feeding in preventing aspiration pneumonia as individuals with dysphagia are likely aspirating oral secretions on an ongoing manner. Spoon feeding of the safest consistency is a reasonable intervention to provide adequate hydration and nutrition to patient. 4. If patient is stable for return to her nursing facility, family should be advised as to how to pursue advocating for a comfort based plan of care as detailed in 1 and 2 above. Given the advanced nature and severity of the patient 's underlying condition, a comfort-only (hospice-level) plan of care is indicated. A hospice referral is appropriate and may provide the requisite social work/case management support to effect this plan. Thank you for involving the palliative care team in this case. Please do not hesitate to call with questions or concerns.
[2018-01-08 14:23] VITALS: BP 110/60
--- NOTE | 2018-01-08 15:31 | Cons- Psychiatry ---
Psychiatric Consult Date of Consult: 01/08/18 Reason for Consult: Asked to see this 77-year-old female for evaluation of capacity to refuse PEG feeding opting instead for comfort feeding and hospice. History of Present Illness: The patient is a 77-year-old female with end-stage Parkinson's disease admitted for evaluation of aspiration pneumonia.. The patient is nonambulatory and dependent. It has been determined that she is no longer able to maintain caloric intake orally and PEG feeding has been recommended. Allergies: Coded Allergies: amantadine (STOMACH UPSET 10/02/17) indomethacin (UPSET STOMACH 10/02/17) Uncoded Allergies: dust (UNKNOWN 10/07/14) Current Medications: Home Med List: Acetaminophen (Acetaminophen ER) 650 MG TABLET.ER 1 TAB PO TID PRN pain ( Reported) Amoxicillin/Potassium Clav (Augmentin 875-125 Tablet) 875 MG-125 MG TABLET 1 TAB PO BID ASPIRATION PNEUMONIA Carbidopa/Levodopa/Entacapone (Nrdzezhas-Ydlmiies-Murb 75 MG) 18.75 MG-75 MG-200 MG TABLET 1 TAB PO 4 TIMES/DAY PARKINSONS DISEASE (Reported) TAKE AT 0800, 1200, 1600 AND 2000. Clonazepam 0.5 MG TABLET 1 TAB PO TID anxiety (Reported) Take at 0830 am, 1200 pm and 0800 pm. Cyclosporine (Restasis) 0.05 % DROPERETTE 1 GTT OPH BID EYE (Reported) Levothyroxine Sodium (Levoxyl) 75 MCG TABLET 1 TAB PO DAILY AC THYROID ( Reported) Omeprazole 20 MG CAPSULE.DR 1 CAP PO DAILY GI (Reported) Polyethylene Glycol 3350 (Miralax) 17 GRAM POWD.PACK 1 PAC PO DAILY PRN CONSTIPATION (Reported) dissolve in water Ranitidine HCl (Zantac) 150 MG TABLET 1 TAB PO DAILY GI (Reported) Tizanidine HCl 2 MG CAPSULE 0.5 TAB PO TID MUSCLE RELAXER (Reported) Past History Past Medical History Neurological: dementia, Parkinson's disease EENT: cataracts Cardiovascular: CAD Respiratory: NONE Gastrointestinal: constipation Hepatic: NONE Renal: NONE Musculoskeletal: falls Psychiatric: anxiety, depression Endocrine: hypothyroidism Blood Disorders: NONE Cancer(s): NONE DIGITAL ACCOUNT MANAGER/Reproductive: NONE Past Surgical History Surgical History: BACK SURGERY TONSILECTOMY Assessment/Plan Mental Status Orientation: Person, Place, Situation Affect: Flat Mental Status Exam: The patient is a pale, 77-year-old female with masklike facies with an NG tube in situ. Eye contact was good. The patient was calm and appropriate. Evident tremor. Speech was low in volume, soft, monotonous and somewhat difficult to understand. The patient was euthymic with flat but appropriate affect. She was not suicidal or homicidal. Patient's thought process was normal in tempo, stream and form. There were no delusions or obsessions. Attention and concentration were good. There was no perceptual abnormality. Impulse control is good. The patient's is aware that her decision to refuse PEG feeding will hasten her . While she does not wish to she is not afraid of . Her judgment is not impaired. She has a full understanding of her situation and of the possible consequences of her decision. Impression: The patient has capacity to refuse PEG feeding. She is making the decision and care consciousness without impaired judgment and with the full understanding of the consequences involved. Of note the patient is conserved in both person and estate. It seems that this is a voluntary conservatorship. Obviously the conservator will have ultimate decision making power for this patient. Conservator should be consulted and involved in the decision-making process. Provisional Treatment Plan: As per medical team. Thank you for consulting us on this patient. We will sign off for now. Please feel free to contact us if we can be of any further assistance.
--- NOTE | 2018-01-08 19:06 | Event Note ---
Event Note Event Note: S: Caroline patient calling for help while I was tending to another patient. I went to see the patient and she was in tears. She states she does not have any pain and is just anxious. She wants to go back to her care facility. A/P: 70 year old female with parkinsons admitted for aspiration pneumonia. -Will give one time dose of Ativan 0.5mg IV Lynne Pratt PGY 1 Pager [phone]
[2018-01-08 22:11] VITALS: BP 122/62
[2018-01-09 06:20] VITALS: BP 128/66
--- NOTE | 2018-01-09 08:01 | PN- Housestaff ---
See Addendum Subjective Follow-up For: Aspiration pneumonia Complaints: no complaints Subjective: Patient has no complaints this morning. She remained stable overnight. She denies fever, chills, headache, chest pain, shortness of breath, abdominal pain. She states she wants to go back to her care facility. Review of Systems Constitutional: Reports: see HPI. Objective Last 24 Hrs of Vital Signs/I&O Vital Signs Date Time Temp Pulse Resp B/P B/P Pulse O2 O2 Flow FiO2 Mean Ox Delivery Rate 01/09 1217 Room Air 01/09 1215 Room Air 01/09 1205 Room Air 01/09 0620 98.1 81 18 128/66 96 Room Air 01/08 2211 97.8 89 20 122/62 92 Room Air 01/08 1423 98.8 84 20 110/60 98 Room Air Intake & Output 01/09 1600 01/09 0800 01/09 0000 Intake Total 100 100 Output Total 450 550 Balance -350 -450 Intake, Oral 100 100 Output, Urine 450 550 Physical Exam General Appearance: Alert, Cooperative, No Acute Distress Skin: No Rashes Skin Temp/Moisture Exam: Warm/Dry HEENT: Atraumatic, PERRLA Neck: Supple Cardiovascular: Regular Rate, Normal S1, Normal S2 Lungs: Clear to Auscultation, Normal Air Movement Abdomen: Normal Bowel Sounds, Soft, No Tenderness Neurological: Sensation Intact, one word answers; sometimes difficult to understand Extremities: No Edema, Normal Pulses Assessment/Plan Assessment: 77 year old female with 22 year h/o Parkinsons disease, depression, hypothyroidism, h/o multiple falls, non ambulatory, GERD admitted for aspiration PNA. NG tube was placed with tube feeds running at 45mL/hr. She continues to state she does not want a feeding tube and understands the risk of aspiration and even . The ethics commitee has been involved with her case as well as the court appointed conservator. PEG tube placement will be held at this time. Palliative care (Dr. Santos) evaluated and recommends goals of care discussion with family/patient/conservator. Patient was reevaluated with swallow test on January 08 and found to tolerate a diet consistent with pure nectar. NG tube was discontinued and patient was taken off restraints. Patient was also seen by psychiatry to determine capacity and she was deemed capable of refusing PEG tube placement. #Aspiration PNA-resolved -[place] thick diet s/p swallow eval on 01/08; tolerating well -completed abx: Ceftaxidime; azithromycin; unasyn #chronic illness -continue home meds Disposition: Goal to get patient back to [facility]; need conservator to sign off on discharge DVT prophylaxis: Heparin, ALPS Problem List: 1. Swallowing problem 2. Parkinson's disease 3. Aspiration pneumonia Pain Ratin Pain Location: none Pain Goal: Remain pain free Pain Plan: see a/p Tomorrow's Labs & Rationales: none
--- NOTE | 2018-01-09 12:00 | Discharge Summary ---
Visit Information Visit Dates Admission Date: 12/27/17 Discharge Date: 01/12/18 Hospital Course Course Attending Physician: Jaime Strong MD Primary Care Physician: Isai Melton MD Hospital Course: Ms. Branch is a 77-year-old female with past medical history of Parkinson's disease, hypothyroidism, and depression who was admitted for fever, tachypnea, and decreased responsiveness secondary to aspiration pneumonia. Admission data: Vitals: Temperature 99.1, pulse 100, RR 22, blood pressure 95/52 on arrival improved to 107/58 with hydration, saturating 94% on room air on exam: A O 2, cooperative, no acute distress, neck supple, JVD normal, no lymphadenopathy, mucosa dry, no focal neurological deficit, no dependent edema, no obvious skin rashes or inflammation CVS: S1-S2, RRR. RS: Crackles right base. Abdomen: Soft, NT, ND, bowel sounds present. CXR: There is interval right lower lobe patchy consolidation with effusion. Rest of lungs are expanded and clear. Heart size and pulmonary vascularity is normal. She was admitted to general medicine and treated for following problems: 1. Aspiration pneumonia 2. Oropharyngeal dysphagia secondary to end-stage Parkinson's disease #Aspiration pneumonia: Patient was admitted with fever and imaging consistent with aspiration pneumonia. She received a full course of ampicillin/sulbactam. Speech and swallow evaluated and the patient failed multiple swallow evaluation attempts. She also failed on modified barium swallow. The patient is conserved and there was a complex family issue because the patient is estranged from her biological children but has a second who has children. Speech and swallow determined that the patient would not be able to meet her nutritional needs to do her oropharyngeal dysphagia. Because the patient is conserved, the conservator was asked whether to proceed with NG tube placement. The conservator agreed to NG tube placement. An NG tube was placed and the patient was started on tube feeding. Throughout this time, the family and the patient began expressing wishes to not have tube feeding and did not want a PEG tube. The ethics committee here at [facility] was consulted as well as palliative care. We had psychiatry evaluate the patient and it was agreed among all treating physicians that she has capacity to make decisions. However, the conservator was of the opinion that a PEG tube should be placed. After repeating swallow evaluation, it was determined that the patient could tolerate food in small amounts with assistence. The NG tube was removed and the patient is now tolerating food. The conservator was called and it was agreed that she could be discharged to rehab for long-term care. She will have a discussion with her family/chief i dispatcher in order to coordinate a do not hospitalize order. Allergies: Coded Allergies: amantadine (STOMACH UPSET 10/02/17) indomethacin (UPSET STOMACH 10/02/17) Uncoded Allergies: dust (UNKNOWN 10/07/14) Disposition Summary Disposition Principal Diagnosis: 1. Aspiration pneumonia Additional Diagnosis: 2. Oropharyngeal dysphagia secondary to end-stage Parkinson's disease Discharge Disposition: SNF Discharge Instructions General Discharge Information Code Status: Do Not Resucitate/Intubat Patient's Diet: Assistance with food Patient's Activity: Bedbound Follow-Up Instructions/Appts: Please take all medications as directed. Please follow-up with primary care. Medications at Discharge Discharge Medications: Stop taking the following medications: Amantadine HCl (Amantadine) 100 MG TABLET ORAL DAILY Continue taking these medications: Levothyroxine Sodium (Levoxyl) 75 MCG TABLET 1 Tablet ORAL DAILY BEFORE BREAKFAST Comments: Last Taken:01/12/18 Time:0600 Polyethylene Glycol 3350 (Miralax) 17 GRAM POWD.PACK 1 Packet ORAL DAILY as needed for CONSTIPATION Instructions: dissolve in water Comments: Last Taken: 01/05/18 Time:1302 Ranitidine HCl (Zantac) 150 MG TABLET 1 Tablet ORAL DAILY Comments: Last Taken:01/12/18 Time:0902 Cyclosporine (Restasis) 0.05 % DROPERETTE 1 Drop In the eye TWICE DAILY Comments: Last Taken:01/12/18 Time:0900 Acetaminophen (Acetaminophen ER) 650 MG TABLET.ER 1 Tablet ORAL THREE TIMES DAILY as needed for pain Comments: Last Taken:01/11/18 Time:1534 Tizanidine HCl (Tizanidine HCl) 2 MG CAPSULE 0.5 Tablet ORAL THREE TIMES DAILY Comments: Last Taken:01/12/18 Time:0900 Clonazepam (Clonazepam) 0.5 MG TABLET 1 Tablet ORAL THREE TIMES DAILY Instructions: Take at 0830 am, 1200 pm and 0800 pm. Comments: Last Taken:01/12/18 Time:1245 Omeprazole (Omeprazole) 20 MG CAPSULE.DR 1 Capsule ORAL DAILY Comments: DID NOT TAKE IN THE HOSPITAL Carbidopa/Levodopa/Entacapone (Tkiyrrkky-Npfpypdo-Pflk 75 MG) 18.75 MG-75 MG-200 MG TABLET 1 Tablet ORAL 4 TIMES A DAY Qty = 270 Instructions: TAKE AT 0800, 1200, 1600 AND 2000. Comments: Last Taken:01/12/18 Time:1245 Copies To: Geronimo WASHBURN,Isai Gann; Carrol WASHBURN,Rosalba Cullen MD,Shanice Dinh Attending MD Review Statement Documenting Attending: Jaime Strong MD Other Findings: The patient was seen and discussed with all. Spoke with her conservator (Marj Batres) and informed her that during this admission she was seen by Psychiatry, Palliative Care/Geriatrics, and us and we all felt that the patient has capacity to understand the implications if she were to refuse a feeding tube. She has advanced Parkinson's Disease and has improved enough with her swallowing after treatment for aspiration pneumonia that she is now able to eat safely.
[2018-01-09 14:14] VITALS: BP 110/65
[2018-01-09 22:30] VITALS: BP 118/70
[2018-01-10 06:37] VITALS: BP 110/70
[2018-01-10 15:03] VITALS: BP 100/65
--- NOTE | 2018-01-10 18:00 | PN- Att Addend ---
Attending Addendum Attending Brief Note 77F H Parkinson's, hypothyroidism, depression admitted with esophageal dysphagia with bilateral lower lobe aspiration pneumonia, treated initially with antibiotics now off, passed swallow evaluation, awaiting discharge back to facility. No complaints, stable vitals, afebrile, labs reviewed. 1. Bilateral lower lobe aspiration pneumonia 2. Esophageal dysphagia Plan - Stable for discharge to facility, awaiting permission by conservator - Continue current management - DVT PPx while inpatient
[2018-01-10 22:06] VITALS: BP 100/60
--- NOTE | 2018-01-10 22:16 | PN- Housestaff ---
Subjective Follow-up For: Aspiration Pneumonia Complaints: no complaints Subjective: Patient seen and examined at bedside. No acute events overnight, patient has no c/o. in room while patient was seen. He expressed patient was able to eat her breakfast, and patient able to provide information regarding her meal, she had pancakes. Review of Systems Constitutional: Denies: chills, diaphoresis, fever. Cardiovascular: Denies: chest pain. Respiratory: Denies: cough, short of breath. Objective Last 24 Hrs of Vital Signs/I&O Vital Signs Date Time Temp Pulse Resp B/P B/P Pulse O2 O2 Flow FiO2 Mean Ox Delivery Rate 01/10 2206 98.1 78 20 100/60 95 Room Air 01/10 1503 98.3 82 20 100/65 96 Room Air 01/10 0637 98.9 78 20 110/70 97 Room Air 01/09 2230 97.9 81 20 118/70 94 Intake & Output 01/10 1600 / 0800 / 0000 Intake Total 800 120 60 Output Total 150 200 Balance 650 120 -140 Intake, Oral 800 120 60 Output, Urine 150 200 Physical Exam General Appearance: Alert, Oriented X3, Cooperative HEENT: Atraumatic, EOMI Neck: Supple, No LAD Cardiovascular: Regular Rate, Normal S1, Normal S2 Lungs: Clear to Auscultation, Normal Air Movement Abdomen: Normal Bowel Sounds, Soft, No Tenderness Assessment/Plan Assessment: 77 year old female with 22 year h/o Parkinsons disease, depression, hypothyroidism, h/o multiple falls, non ambulatory, GERD admitted for aspiration PNA. NG tube was placed with tube feeds running at 45mL/hr. She continues to state she does not want a feeding tube and understands the risk of aspiration and even . The ethics commitee has been involved with her case as well as the court appointed conservator. PEG tube placement will be held at this time. Palliative care (Dr. Santos) evaluated and recommends goals of care discussion with family/patient/conservator. Patient was reevaluated with swallow test on January 08 and found to tolerate a diet consistent with pure nectar. NG tube was discontinued and patient was taken off restraints. Patient was also seen by psychiatry to determine capacity and she was deemed capable of refusing PEG tube placement. #Aspiration PNA-resolved -[place] thick diet s/p swallow eval on 7/5; tolerating well -completed abx: Ceftaxidime; azithromycin; unasyn #chronic illness -continue home meds Disposition: Goal to get patient back to [facility]; need conservator to sign off on discharge DVT prophylaxis: Heparin, ALPS Problem List: 1. Aspiration pneumonia Pain Ratin Pain Location: n/a Pain Goal: Remain pain free Pain Plan: n/a Tomorrow's Labs & Rationales: none
[2018-01-11 06:32] VITALS: BP 100/66
--- NOTE | 2018-01-11 12:05 | PN- Housestaff ---
Mir Boland 01/11/18 1205: Subjective Follow-up For: Aspiration Pneumona Subjective: Patient seen and examined at bedside. No acute events overnight. Patient has no c/o. Patient is tolerating her diet, no episodes of Nausea or vomiting. Review of Systems Constitutional: Denies: chills, diaphoresis, fever. Gastrointestinal: Denies: abdominal pain, nausea, vomiting. Objective Last 24 Hrs of Vital Signs/I&O Vital Signs Date Time Temp Pulse Resp B/P B/P Pulse O2 O2 Flow FiO2 Mean Ox Delivery Rate 01/11 1402 97.8 95 20 110/60 97 Room Air 01/11 0632 97.8 74 16 100/66 96 Room Air 01/10 2206 98.1 78 20 100/60 95 Room Air Intake & Output 01/11 1600 01/11 0800 01/11 0000 Intake Total 400 Output Total Balance 400 Intake, Oral 400 Number 0 Bowel Movements Physical Exam General Appearance: Alert, Oriented X3, Cooperative Skin: No Rashes HEENT: Atraumatic, EOMI Neck: Supple, No LAD Cardiovascular: Regular Rate, Normal S1, Normal S2 Lungs: Clear to Auscultation, Normal Air Movement Abdomen: Normal Bowel Sounds, Soft, No Tenderness Assessment/Plan Assessment: 77 year old female with 22 year h/o Parkinsons disease, depression, hypothyroidism, h/o multiple falls, non ambulatory, GERD admitted for aspiration PNA. NG tube was placed with tube feeds running at 45mL/hr. She continues to state she does not want a feeding tube and understands the risk of aspiration and even . The ethics commitee has been involved with her case as well as the court appointed conservator. PEG tube placement will be held at this time. Palliative care (Dr. Santos) evaluated and recommends goals of care discussion with family/patient/conservator. Patient was reevaluated with swallow test on January 08 and found to tolerate a diet consistent with pure nectar. NG tube was discontinued and patient was taken off restraints. Patient was also seen by psychiatry to determine capacity and she was deemed capable of refusing PEG tube placement. #Aspiration PNA-resolved -[place] thick diet s/p swallow eval on 01/08; tolerating well -completed abx: Ceftaxidime; azithromycin; unasyn #chronic illness -continue home meds Disposition: Goal to get patient back to [facility]; need conservator to sign off on discharge DVT prophylaxis: Heparin, ALPS Discharge pending approval by conservator Problem List: 1. Aspiration pneumonia Pain Ratin Pain Location: n/a Pain Goal: Remain pain free Pain Plan: n/a Tomorrow's Labs & Rationales: none Sharmila Mera MD 01/11/18 1458: Attending MD Review Statement Attending Statement Attending MD Statement: examined this patient, discuss w/resident/PA/EVENTS AND PROMOTIONS ASSISTANT, agreed w/resident/PA/EVENTS AND PROMOTIONS ASSISTANT, reviewed EMR data (avail) Attending Assessment/Plan: 77F [facility] Parkinson's, hypothyroidism, depression admitted with esophageal dysphagia with bilateral lower lobe aspiration pneumonia, treated initially with antibiotics now off, passed swallow evaluation, awaiting discharge back to facility. No complaints, stable vitals, afebrile, labs reviewed. 1. Bilateral lower lobe aspiration pneumonia 2. Esophageal dysphagia Plan - Stable for discharge to facility, awaiting permission by conservator - Continue current management - DVT PPx while inpatient
[2018-01-11 14:02] VITALS: BP 110/60
[2018-01-11 22:08] VITALS: BP 110/60
[2018-01-12 06:36] VITALS: BP 122/58
--- NOTE | 2018-01-12 07:18 | PN- Housestaff ---
See Addendum Subjective Follow-up For: aspiration pneumonia Complaints: no complaints Subjective: Patient states she is feeling well and ready to be discharged. She mentioned this morning that she prefer to be discharged to [facility] instead of [facility] because it is closer to her family. She denies any fever, chills, n/v/d, chest pain, SOB. She states she is tolerating her diet well. Review of Systems Constitutional: Reports: see HPI. Objective Last 24 Hrs of Vital Signs/I&O Vital Signs Date Time Temp Pulse Resp B/P B/P Pulse O2 O2 Flow FiO2 Mean Ox Delivery Rate 01/12 0636 98.5 79 18 122/58 96 Room Air 01/11 2208 97.8 97 20 110/60 97 Room Air 01/11 1402 97.8 95 20 110/60 97 Room Air Intake & Output 01/12 0800 01/12 0000 01/11 1600 Intake Total 400 Output Total Balance 400 Intake, Oral 400 Number 0 Bowel Movements Physical Exam General Appearance: Alert, Cooperative, No Acute Distress, oriented to person, place, and year, fraile appearing female Skin: No Rashes Skin Temp/Moisture Exam: Cool/Dry HEENT: Atraumatic, PERRLA Neck: Supple Cardiovascular: Regular Rate, Normal S1, Normal S2, No Murmurs Lungs: Clear to Auscultation, Normal Air Movement Abdomen: Normal Bowel Sounds, Soft, No Tenderness Neurological: Sensation Intact Extremities: No Edema, Normal Pulses Assessment/Plan Assessment: 77 year old female with 22 year h/o Parkinsons disease, depression, hypothyroidism, h/o multiple falls, non ambulatory, GERD admitted for aspiration PNA. NG tube was placed with tube feeds running at 45mL/hr. She continues to state she does not want a feeding tube and understands the risk of aspiration and even . The ethics commitee has been involved with her case as well as the court appointed conservator. PEG tube placement will be held at this time. Palliative care (Dr. Santos) evaluated and recommends goals of care discussion with family/patient/conservator. Patient was reevaluated with swallow test on January 08 and found to tolerate a diet consistent with pure nectar. NG tube was discontinued and patient was taken off restraints. Patient was also seen by psychiatry to determine capacity and she was deemed capable of refusing PEG tube placement. #Aspiration PNA-resolved -[place] thick diet s/p swallow eval on 01/08; tolerating well -completed abx: Ceftaxidime; azithromycin; unasyn #chronic illness -continue home meds Disposition: Goal to get patient back to [facility]; need conservator to sign off on discharge. Having a difficult time getting a hold of conservator. Will continue to attempt to reach her today. Patient desires to be placed in [facility] for continued care. Will speak with case management about this. DVT prophylaxis: Heparin, ALPS Problem List: 1. Parkinson's disease 2. Swallowing problem 3. Aspiration pneumonia Pain Ratin Pain Location: none Pain Goal: Remain pain free Pain Plan: see a/p Tomorrow's Labs & Rationales: none
[2018-01-12] MEDS ORDERED: AMANTADINE100 M2 PO (14:30)
[2018-01-12 14:46] VITALS: BP 122/58
== END 2018-01-12 14:45 | DRG 179 ==
LOC: ERH 18:27 → ERHI 20:35 → 2NA 20:35 → CANRESERV 21:32 → ENRESERV 21:32 → ENTRNSPT 21:47 → EDTRNSPTSTS 21:59 → 2NA 22:03 → CMPTRNSPT 22:11 → 2NA 12-30 08:58
PROVIDERS: Internal Medicine; Physician Assistant
PROC: 0DH67UZ Insertion of Feeding Device into Stomach, Via Natural or Artificial Opening (ICD-10-PCS; principal; 2018-01-02)
PROC: 3E0G76Z Introduction of Nutritional Substance into Upper GI, Via Natural or Artificial Opening (ICD-10-PCS; 2018-01-02)
DX: J69.0 Pneumonitis due to inhalation of food and vomit (principal); Z51.5 Encounter for palliative care; G20 Parkinson's disease; E03.9 Hypothyroidism, unspecified; E87.70 Fluid overload, unspecified; R09.02 Hypoxemia; F32.9 Major depressive disorder, single episode, unspecified; Z91.81 History of falling; K21.9 Gastro-esophageal reflux disease without esophagitis; Z88.8 Allergy status to other drugs, medicaments and biological substances; F41.9 Anxiety disorder, unspecified; I25.10 Atherosclerotic heart disease of native coronary artery without angina pectoris; H26.9 Unspecified cataract; R13.12 Dysphagia, oropharyngeal phase; F03.90 Unspecified dementia, unspecified severity, without behavioral disturbance, psychotic disturbance, mood disturbance, and anxiety; Z66 Do not resuscitate
CPT/HCPCS: 2NAP; 36415; 36592; 71045; 71046; 74230; 81001; 82436; 87040; 87070; 87086; 87449; 87450; 93005; 93010; 93306; 94799; 96365; 96375; 99291; J0131; J0713; J1644; J1650; J1940; J3370; J7042